=== PATIENT | female | born 1955 | race Caucasian/White ===

== ENCOUNTER 2018-04-14 19:12 | Observation (INO) ==
[2018-04-14] MEDS ORDERED: 0.9 % Sodium Chloride 500 ML IVC ONE (19:14)
--- NOTE | 2018-04-14 19:15 | Emergency Department Note ---
Disposition Clinical Impression: Chest pain Qualifiers: Chest pain type: unspecified Qualified Code(s): R07.9 - Chest pain, unspecified Disposition: Admitted As Inpatient Referrals: NONE,PCP [Primary Care Provider] - Forms: ED Satisfaction Letter Time of Disposition: 20:38 Chest Pain HPI - General Chief Complaint: ED Chest Pain Stated Complaint: CP Time Seen by Provider: 04/14/18 19:14 Source: patient, EMS Mode of arrival: EMS Limitations: no limitations Vital Signs Reviewed: Yes Nursing Notes Reviewed: Yes - History of Present Illness HPI Narrative: Patient presents to the ED if the chief complaint of chest pain. Patient does not have a history of coronary artery disease, but has had a normal stress test in the past. States that she has not felt well over the last week and about 3 or 4 hours ago started having centralized chest pressure and tightness radiating through to her back. EMS reports she was initially hypertensive and they gave her aspirin and nitroglycerin, which significantly improved her pain. She denies any headache or changes in vision. Some associated shortness of breath. States that she has a questionable history of CHF. Because she has been told that she has had in the past, but other times they have said she has not. Denies any pain or swelling in her legs. No abdominal pain, nausea, vomiting or diarrhea. - Related Data Home Medications Medication Instructions Recorded Confirmed ALPRAZolam [Xanax 1 MG Tablet] 1 mg PO TID PRN 11/05/15 01/11/16 BuPROPion SR (12 HR) [Wellbutrin 150 mg PO QAM 11/05/15 01/11/16 SR] Famotidine [Pepcid] 20 mg PO BID 11/05/15 01/11/16 Gabapentin [Neurontin] 300 mg PO TID 11/05/15 01/11/16 Oxycodone HCl [Oxaydo] 5 mg PO BID PRN 11/05/15 01/11/16 Sucralfate [Carafate] 2 gm PO QID 11/05/15 01/11/16 Carvedilol [Coreg] 25 mg PO BID 04/14/18 04/14/18 Esomeprazole Magnesium [Nexium] 40 mg PO DAILY 04/14/18 04/14/18 Ropinirole HCl [Requip] 5 mg PO QPM 04/14/18 04/14/18 hydroCHLOROthiazide 25 mg PO DAILY 04/14/18 04/14/18 [Hydrochlorothiazide] Allergies Allergy/AdvReac Type Severity Reaction Status Date / Time pregabalin [From Lyrica] Allergy See Verified 12/26/16 00:22 Comments amlodipine [From Norvasc] AdvReac Swelling Verified 12/26/16 01:09 of Lip/Tongue/Throat Review of Systems: As reviewed in the HPI. All other systems reviewed are negative or normal. Chest Pain PMH - Past Medical History Medical history: Reports: GERD, hypertension, other Psychiatric history: Reports: anxiety, depression - Social History Smoking Status: Former smoker Alcohol use: Reports: none Drug use: Reports: none Physical Exam CONSTITUTIONAL: [well appearing, alert and in no acute distress, slightly puffy] EYES: [EOMI, clear conjunctiva, PERRLA] HENT: [Normocephalic, atraumatic, moist mucus membranes, normal oropharynx] NECK: [normal inspection, full ROM, trachea midline, no obvious swelling] PULMONARY: [normal lung sounds bilaterally, normal chest rise and fall, no respiratory distress or stridor, no wheezes, no rales, no rhonchi CARDIOVASCULAR: [regular rate, regular rhythm, normal heart sounds, no murmurs, distal extremities are warm and well perfused] GASTROINSTESTINAL: [soft, non-tender, non-rigid, non-distended, no guarding, no rebound, normal bowel sounds] GENITOURINARY/RECTAL: [deferred] NEUROLOGIC: [Alert, oriented x3, normal speech, moves all extremities] EXTREMITIES: [Normal inspection, full ROM, no tenderness, no pedal edema, normal capillary refill] MUSCULOSKELETAL: [no gross deformities, atraumatic] SKIN: [No cyanosis, no diaphoresis, normal color, warm, no rash] PSYCHIATRIC: [normal mood and affect] Course Course Narrative: Patient presenting with chest pain. Concerning given her story. Also seems to be exertional. We will get labs and admit. Patient was pain-free with nitroglycerin her pain started to come back in another nitroglycerin relieved her pain. Vital Signs Temperature 98.3 F 04/14/18 19:15 Pulse Rate 78 04/14/18 19:15 Respiratory Rate 19 04/14/18 19:15 Blood Pressure 151/81 04/14/18 19:15 O2 Sat by Pulse Oximetry 98 04/14/18 19:15 Temperature 98.3 F 04/14/18 19:15 Pulse Rate 79 04/14/18 20:39 Respiratory Rate 18 04/14/18 20:39 Blood Pressure 136/73 04/14/18 20:39 O2 Sat by Pulse Oximetry 97 04/14/18 20:39 Oxygen Delivery Oxygen Delivery Room Air Chest Pain - Medical Records Medical records reviewed: Yes I reviewed the patient's medical records. - Lab Data Lab results reviewed: Yes I reviewed the patient's lab results. Result diagrams: 04/14/18 19:31 04/14/18 19:31 Lab Results 04/14/18 04/14/18 04/14/18 Range/Units 19:31 19:31 19:31 WBC 6.9 (4.3-11.1) K/mcL RBC 4.94 (3.82-4.97) M/mcL Hgb 12.7 (11.5-15.4) g/dL Hct 39.6 (35.3-44.9) % MCV 80.2 L (83.0-100.0) fL MCH 25.7 L (28.0-33.3) pg MCHC 32.1 (31.6-35.5) g/dL RDW 14.6 H (11.5-14.5) % Plt Count 161 (140-400) K/mcL MPV 11.9 (9.4-12.4) fL Immature Gran % 0.4 (0-4) % Seg Neutrophils % 51.8 % Lymphocytes % 33.2 % Monocytes % 11.5 % Eosinophils % 2.5 % Basophils % 0.6 % Neutrophils # 3.6 (1.6-8.9) K/mcL Lymphocytes # 2.3 (0.6-4.6) K/mcL Monocytes # 0.8 (0.0-1.3) K/mcL Eosinophils # 0.2 (0.0-0.6) K/mcL Basophils # 0.0 (0.0-0.2) K/mcL PT 10.9 (9.4-12.1) Seconds INR 1.0 APTT 32.8 (26.0-36.0) Seconds Sodium (136-145) mEq/L Potassium (3.5-5.1) mEq/L Chloride (98-107) mEq/L Carbon Dioxide (23-29) mEq/L BUN (8-23) mg/dL Creatinine (0.60-1.20) mg/dL Est GFR ( Amer) (> 60) Est GFR (Non-Af Amer) (> 60) BUN/Creatinine Ratio (6-26) Glucose (70-105) mg/dL Calculated Osmolality (280-300) Calcium (8.6-10.3) mg/dL Troponin I (< 0.04) ng/mL B-Natriuretic Peptide 25 (Less than 100) pg/mL TSH (0.340-5.600) mcIU/mL Urine Color (Yellow) Urine Clarity (Clear) Urine pH (5.0-8.0) pH Units Ur Specific [place] (1.010-1.025) Urine Protein (Neg-Trace) mg/dL Urine Glucose (UA) (Normal) mg/dL Urine Ketones (Negative) mg/dL Urine Blood (Negative) Urine Nitrite (Negative) Urine Bilirubin (Negative) Urine Urobilinogen (Normal) mg/dL Ur Leukocyte Esterase (Negative) Urine Microscopic RBC (0-3) per hpf Urine Microscopic WBC (0-3) per hpf Ur Squamous Epith Cells (None-Few) per lpf Urine Bacteria (None-Few) per hpf Hyaline Casts (None-Few) per lpf Ur Culture Indicated? (NO) 04/14/18 04/14/18 04/14/18 Range/Units 19:31 19:31 20:23 WBC (4.3-11.1) K/mcL RBC (3.82-4.97) M/mcL Hgb (11.5-15.4) g/dL Hct (35.3-44.9) % MCV (83.0-100.0) fL MCH (28.0-33.3) pg MCHC (31.6-35.5) g/dL RDW (11.5-14.5) % Plt Count (140-400) K/mcL MPV (9.4-12.4) fL Immature Gran % (0-4) % Seg Neutrophils % % Lymphocytes % % Monocytes % % Eosinophils % % Basophils % % Neutrophils # (1.6-8.9) K/mcL Lymphocytes # (0.6-4.6) K/mcL Monocytes # (0.0-1.3) K/mcL Eosinophils # (0.0-0.6) K/mcL Basophils # (0.0-0.2) K/mcL PT (9.4-12.1) Seconds INR APTT (26.0-36.0) Seconds Sodium 137 (136-145) mEq/L Potassium 4.0 (3.5-5.1) mEq/L Chloride 100 (98-107) mEq/L Carbon Dioxide 27 (23-29) mEq/L BUN 10 (8-23) mg/dL Creatinine 0.47 L (0.60-1.20) mg/dL Est GFR ( Amer) > 60 (> 60) Est GFR (Non-Af Amer) > 60 (> 60) BUN/Creatinine Ratio 21 (6-26) Glucose 133 H (70-105) mg/dL Calculated Osmolality 285 (280-300) Calcium 10.0 (8.6-10.3) mg/dL Troponin I < 0.03 (< 0.04) ng/mL B-Natriuretic Peptide (Less than 100) pg/mL TSH 1.140 (0.340-5.600) mcIU/mL Urine Color Yellow (Yellow) Urine Clarity Clear (Clear) Urine pH 7.5 (5.0-8.0) pH Units Ur Specific [place] 1.024 (1.010-1.025) Urine Protein 30 H (Neg-Trace) mg/dL Urine Glucose (UA) Normal (Normal) mg/dL Urine Ketones Negative (Negative) mg/dL Urine Blood Negative (Negative) Urine Nitrite Negative (Negative) Urine Bilirubin Negative (Negative) Urine Urobilinogen Normal (Normal) mg/dL Ur Leukocyte Esterase Small H (Negative) Urine Microscopic RBC 0-3 (0-3) per hpf Urine Microscopic WBC 0-3 (0-3) per hpf Ur Squamous Epith Cells Many H (None-Few) per lpf Urine Bacteria None Seen (None-Few) per hpf Hyaline Casts None Seen (None-Few) per lpf Ur Culture Indicated? NO. A (NO) - Radiology Data Radiology results reviewed: Yes I reviewed the patient's radiology results. - EKG Data EKG attestation: Yes I reviewed and interpreted this EKG. EKG results narrative: Sinus rhythm, rate 78, right bundle branch block, normal intervals, borderline left axis deviation, no acute ischemic changes, similar morphology to previous. Heart Score - Score History: Highly Suspicious EKG: Non Specific repolarisation Disturbance Age: 45-65 Risk Factors: Equal/Greater than 3 risk factor or history of atherosclerotic disease Troponin: Less than normal limit HEART Score Total: 6
[2018-04-14 19:50] LABS: Basophils % 0.6 %; Eosinophils # 0.2 K/mcL (0.0-0.6); Eosinophils % 2.5 %; Hematocrit 39.6 % (35.3-44.9); Hemoglobin 12.7 g/dL (11.5-15.4); Immature Granulocytes % 0.4 % (0-4); Lymphocytes # 2.3 K/mcL (0.6-4.6); Lymphocytes % 33.2 %; Mean Corpuscular HGB Conc 32.1 g/dL (31.6-35.5); Mean Corpuscular Hemoglobin 25.7 pg (28.0-33.3); Mean Corpuscular Volume 80.2 fL (83.0-100.0); Mean Platelet Volume 11.9 fL (9.4-12.4); Monocytes # 0.8 K/mcL (0.0-1.3); Monocytes % 11.5 %; Neutrophils # 3.6 K/mcL (1.6-8.9); Platelet Count 161 K/mcL (140-400); Red Blood Count 4.94 M/mcL (3.82-4.97); Red Cell Distribution Width 14.6 % (11.5-14.5); Segmented Neutrophils % 51.8 %
[2018-04-14 19:56] LABS: Prothrombin Time 10.9 Seconds (9.4-12.1)
[2018-04-14 19:58] LABS: Activated Partial Thrombo Time 32.8 Seconds (26.0-36.0)
[2018-04-14 20:09] LABS: BUN/Creatinine Ratio 21 (6-26); Blood Urea Nitrogen 10 mg/dL (8-23); Carbon Dioxide 27 mEq/L (23-29); Chloride 100 mEq/L (98-107); Glucose 133 mg/dL (70-105); Osmolality,Calculated 285 (280-300); Sodium 137 mEq/L (136-145); Troponin I < 0.03 ng/mL (< 0.04); eGFR For Non-African Americans > 60 (> 60)
[2018-04-14] MEDS: Nitroglycerin 0.4 MG TAB.SUBL SL PRN ×2 (20:30→20:35)
[2018-04-14 20:34] LABS: Bilirubin,Urine Negative (Negative); Blood,Urine Negative (Negative); Clarity,Urine Clear (Clear); Color,Urine Yellow (Yellow); Glucose,Urine (UA) Normal (Normal); Ketones,Urine Negative (Negative); Leukocyte Esterase,Urine Small (Negative); Nitrite,Urine Negative (Negative); PH,Urine 7.5 pH Units (5.0-8.0); Protein,Urine 30 mg/dL (Neg-Trace); Specific Gravity,Urine 1.024 (1.010-1.025); Urobilinogen,Urine Normal (Normal)
[2018-04-14 20:36] LABS: Bacteria,Urine None Seen per hpf (None-Few); Hyaline Casts,Urine None Seen per lpf (None-Few); RBC,Urine 0-3 per hpf (0-3); Squamous Epithelial Cell,Urine Many per lpf (None-Few); WBC,Urine 0-3 per hpf (0-3)
--- NOTE | 2018-04-14 20:43 | Emergency Department Note ---
Disposition Clinical Impression: Chest pain Qualifiers: Chest pain type: unspecified Qualified Code(s): R07.9 - Chest pain, unspecified Disposition: Admitted As Inpatient Condition: Fair Referrals: NONE,PCP [Primary Care Provider] - Forms: ED Satisfaction Letter General Adult HPI - General Chief complaint: ED Chest Pain Stated complaint: CP Time Seen by Provider: 04/14/18 19:14 Source: patient, EMS Mode of arrival: EMS Limitations: no limitations - History of Present Illness Pain Scale: 8 - Related Data Home Medications Medication Instructions Recorded Confirmed ALPRAZolam [Xanax 1 MG Tablet] 1 mg PO TID PRN 11/05/15 01/11/16 BuPROPion SR (12 HR) [Wellbutrin 150 mg PO QAM 11/05/15 01/11/16 SR] Famotidine [Pepcid] 20 mg PO BID 11/05/15 01/11/16 Gabapentin [Neurontin] 300 mg PO TID 11/05/15 01/11/16 Oxycodone HCl [Oxaydo] 5 mg PO BID PRN 11/05/15 01/11/16 Sucralfate [Carafate] 2 gm PO QID 11/05/15 01/11/16 Carvedilol [Coreg] 25 mg PO BID 04/14/18 04/14/18 Esomeprazole Magnesium [Nexium] 40 mg PO DAILY 04/14/18 04/14/18 Ropinirole HCl [Requip] 5 mg PO QPM 04/14/18 04/14/18 hydroCHLOROthiazide 25 mg PO DAILY 04/14/18 04/14/18 [Hydrochlorothiazide] Allergies Allergy/AdvReac Type Severity Reaction Status Date / Time pregabalin [From Lyrica] Allergy See Verified 12/26/16 00:22 Comments amlodipine [From Norvasc] AdvReac Swelling Verified 12/26/16 01:09 of Lip/Tongue/Throat Past Medical History - Past Medical History Medical history: Reports: GERD, hypertension, other Psychiatric history: Reports: anxiety, depression - Social History Smoking Status: Former smoker Smokeless Tobacco Status: No Alcohol use: Reports: none Drug use: Reports: none Physical Exam - General Limitations: no limitations General appearance: alert, in no apparent distress Course Vital Signs Temperature 98.3 F 04/14/18 19:15 Pulse Rate 78 04/14/18 19:15 Respiratory Rate 19 04/14/18 19:15 Blood Pressure 151/81 04/14/18 19:15 O2 Sat by Pulse Oximetry 98 04/14/18 19:15 Temperature 98.3 F 04/14/18 19:15 Pulse Rate 79 04/14/18 20:39 Respiratory Rate 18 04/14/18 20:39 Blood Pressure 136/73 04/14/18 20:39 O2 Sat by Pulse Oximetry 97 04/14/18 20:39 Oxygen Delivery Oxygen Delivery Room Air Medical Decision Making - Lab Data Result diagrams: 04/14/18 19:31 04/14/18 19:31 Lab Results 04/14/18 04/14/18 04/14/18 Range/Units 19:31 19:31 19:31 WBC 6.9 (4.3-11.1) K/mcL RBC 4.94 (3.82-4.97) M/mcL Hgb 12.7 (11.5-15.4) g/dL Hct 39.6 (35.3-44.9) % MCV 80.2 L (83.0-100.0) fL MCH 25.7 L (28.0-33.3) pg MCHC 32.1 (31.6-35.5) g/dL RDW 14.6 H (11.5-14.5) % Plt Count 161 (140-400) K/mcL MPV 11.9 (9.4-12.4) fL Immature Gran % 0.4 (0-4) % Seg Neutrophils % 51.8 % Lymphocytes % 33.2 % Monocytes % 11.5 % Eosinophils % 2.5 % Basophils % 0.6 % Neutrophils # 3.6 (1.6-8.9) K/mcL Lymphocytes # 2.3 (0.6-4.6) K/mcL Monocytes # 0.8 (0.0-1.3) K/mcL Eosinophils # 0.2 (0.0-0.6) K/mcL Basophils # 0.0 (0.0-0.2) K/mcL PT 10.9 (9.4-12.1) Seconds INR 1.0 APTT 32.8 (26.0-36.0) Seconds Sodium (136-145) mEq/L Potassium (3.5-5.1) mEq/L Chloride (98-107) mEq/L Carbon Dioxide (23-29) mEq/L BUN (8-23) mg/dL Creatinine (0.60-1.20) mg/dL Est GFR ( Amer) (> 60) Est GFR (Non-Af Amer) (> 60) BUN/Creatinine Ratio (6-26) Glucose (70-105) mg/dL Calculated Osmolality (280-300) Calcium (8.6-10.3) mg/dL Troponin I (< 0.04) ng/mL B-Natriuretic Peptide 25 (Less than 100) pg/mL TSH (0.340-5.600) mcIU/mL Urine Color (Yellow) Urine Clarity (Clear) Urine pH (5.0-8.0) pH Units Ur Specific [place] (1.010-1.025) Urine Protein (Neg-Trace) mg/dL Urine Glucose (UA) (Normal) mg/dL Urine Ketones (Negative) mg/dL Urine Blood (Negative) Urine Nitrite (Negative) Urine Bilirubin (Negative) Urine Urobilinogen (Normal) mg/dL Ur Leukocyte Esterase (Negative) Urine Microscopic RBC (0-3) per hpf Urine Microscopic WBC (0-3) per hpf Ur Squamous Epith Cells (None-Few) per lpf Urine Bacteria (None-Few) per hpf Hyaline Casts (None-Few) per lpf Ur Culture Indicated? (NO) 04/14/18 04/14/18 04/14/18 Range/Units 19:31 19:31 20:23 WBC (4.3-11.1) K/mcL RBC (3.82-4.97) M/mcL Hgb (11.5-15.4) g/dL Hct (35.3-44.9) % MCV (83.0-100.0) fL MCH (28.0-33.3) pg MCHC (31.6-35.5) g/dL RDW (11.5-14.5) % Plt Count (140-400) K/mcL MPV (9.4-12.4) fL Immature Gran % (0-4) % Seg Neutrophils % % Lymphocytes % % Monocytes % % Eosinophils % % Basophils % % Neutrophils # (1.6-8.9) K/mcL Lymphocytes # (0.6-4.6) K/mcL Monocytes # (0.0-1.3) K/mcL Eosinophils # (0.0-0.6) K/mcL Basophils # (0.0-0.2) K/mcL PT (9.4-12.1) Seconds INR APTT (26.0-36.0) Seconds Sodium 137 (136-145) mEq/L Potassium 4.0 (3.5-5.1) mEq/L Chloride 100 (98-107) mEq/L Carbon Dioxide 27 (23-29) mEq/L BUN 10 (8-23) mg/dL Creatinine 0.47 L (0.60-1.20) mg/dL Est GFR ( Amer) > 60 (> 60) Est GFR (Non-Af Amer) > 60 (> 60) BUN/Creatinine Ratio 21 (6-26) Glucose 133 H (70-105) mg/dL Calculated Osmolality 285 (280-300) Calcium 10.0 (8.6-10.3) mg/dL Troponin I < 0.03 (< 0.04) ng/mL B-Natriuretic Peptide (Less than 100) pg/mL TSH 1.140 (0.340-5.600) mcIU/mL Urine Color Yellow (Yellow) Urine Clarity Clear (Clear) Urine pH 7.5 (5.0-8.0) pH Units Ur Specific [place] 1.024 (1.010-1.025) Urine Protein 30 H (Neg-Trace) mg/dL Urine Glucose (UA) Normal (Normal) mg/dL Urine Ketones Negative (Negative) mg/dL Urine Blood Negative (Negative) Urine Nitrite Negative (Negative) Urine Bilirubin Negative (Negative) Urine Urobilinogen Normal (Normal) mg/dL Ur Leukocyte Esterase Small H (Negative) Urine Microscopic RBC 0-3 (0-3) per hpf Urine Microscopic WBC 0-3 (0-3) per hpf Ur Squamous Epith Cells Many H (None-Few) per lpf Urine Bacteria None Seen (None-Few) per hpf Hyaline Casts None Seen (None-Few) per lpf Ur Culture Indicated? NO. A (NO) Attestation Statement - Attestation Attestation: I examined this patient and my medical decision-making was reviewed with the Resident Physician. I agree with the documented findings, disposition and treatment plan as described except to the extent set forth below. Patient to the ED with chest pain. Describes it as heaviness going into her back. No cardiac history. On exam she is in no acute distress. Denies pain on my evaluation. Heart regular lungs clear. Plan. Patient with a concerning story. Recently diagnosed with hypertension. Likely observation. . No acute EKG changes. Troponin negative. Her discomfort is almost completely resolved with nitroglycerin. We will start a nitro drip. Admit to medicine.
[2018-04-15] MEDS ORDERED: Naloxone 0.4 MG/ML INJ IVP PRN (03:33)
[2018-04-15] MEDS ORDERED: *HR* OxyCODONE Immed Rel 5 MG TABLET PO PRN (03:59)
[2018-04-15] MEDS ORDERED: Isovue-370 500 ML INFUS..BTL IV ONE (04:09)
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
[2018-04-15 04:30] LABS: Hematocrit 37.7 % (35.3-44.9); Hemoglobin 12.2 g/dL (11.5-15.4); Mean Corpuscular HGB Conc 32.4 g/dL (31.6-35.5); Mean Corpuscular Hemoglobin 25.4 pg (28.0-33.3); Mean Corpuscular Volume 78.5 fL (83.0-100.0); Mean Platelet Volume 10.7 fL (9.4-12.4); Platelet Count 140 K/mcL (140-400); Red Cell Distribution Width 14.7 % (11.5-14.5)
[2018-04-15 04:57] LABS: Alanine Aminotransferase 19 Units/L (7-52); Albumin 4.1 g/dL (3.5-5.7); Albumin/Globulin Ratio 1.5 (1.1-2.2); Alkaline Phosphatase 53 Units/L (34-104); Aspartate Amino Transferase 14 Units/L (13-39); BUN/Creatinine Ratio 21 (6-26); Bilirubin,Total 0.4 mg/dL (0.3-1.0); Blood Urea Nitrogen 9 mg/dL (8-23); Calcium 9.5 mg/dL (8.6-10.3); Carbon Dioxide 27 mEq/L (23-29); Chloride 100 mEq/L (98-107); Globulin 2.7 g/dL (2.4-3.5); Glucose 109 mg/dL (70-105); Osmolality,Calculated 281 (280-300); Potassium 3.7 mEq/L (3.5-5.1); Sodium 136 mEq/L (136-145); Total Protein 6.8 g/dL (6.4-8.9); eGFR For Non-African Americans > 60 (> 60)
[2018-04-15] MEDS ORDERED: Famotidine 20 MG TABLET PO SCH (07:30)
[2018-04-15] MEDS ORDERED: ALPRAZolam 1 MG TABLET PO SCH (09:00)
[2018-04-15] MEDS ORDERED: Aspirin 325 MG TABLET PO SCH (09:00)
[2018-04-15] MEDS ORDERED: BuPROPion SR (12 HR) 150 MG TABLET PO SCH (09:00)
[2018-04-15] MEDS ORDERED: hydroCHLOROthiazide 25 MG TABLET PO SCH (09:00)
[2018-04-15 11:41] VITALS: BP 141/91
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
[2018-04-15] MEDS: Sucralfate 1 GM TABLET PO SCH ×2 (12:03→12:26)
[2018-04-15] MEDS: Gabapentin 300 MG CAPSULE PO SCH ×2 (12:04→12:26)
--- NOTE | 2018-04-15 13:04 | Discharge Summary ---
- NOTES TO OUTPATIENT PROVIDER Notes to Outpatient Provider: Chest pain, likely anxiety and stress-related; nuclear stress test negative; uncontrolled HTN, to monitor as outpatient; consider ACEI/ARB; Orders not resulted at time of discharge: Pending orders 04/15/18 04:09 CT angio chest [CT] Stat CTA Abdomen [CT angio abdomen] [CT] Stat 04/15/18 04:19 NM asia perf SPECT multi [NM] Routine 04/15/18 07:19 EV echocardiogram Routine 04/15/18 09:45 Troponin I Q6H 04/15/18 15:45 Troponin I Q6H Date of Encounter: 04/15/18 Time of Encounter: 13:00 - Discharge Diagnosis (1) COPD (chronic obstructive pulmonary disease) Priority: Secondary Status: Chronic Qualifiers: COPD type: emphysema Emphysema type: unspecified Qualified Code(s): J43.9 - Emphysema, unspecified (2) Chest pain Priority: Primary Status: Acute Qualifiers: Chest pain type: unspecified Qualified Code(s): R07.9 - Chest pain, unspecified (3) Anxiety and depression Priority: Secondary Status: Chronic (4) Sleep apnea Priority: Secondary Status: Chronic Qualifiers: Sleep apnea type: obstructive Qualified Code(s): G47.33 - Obstructive sleep apnea (adult) (pediatric) (5) Essential hypertension Priority: Secondary Status: Chronic Hospital course: Ms. Landon Birmingham is a 62 year old female with the above medical problems, who was admitted with chest pain and mild exertional dyspnea. Her chest pain started after having an argument with her daughter, likely stress and anxiety related. She was also noted to have uncontrolled hypertension at admission, reports compliance to medications. Blood pressure was gradually better controlled with use of when necessary IV hydralazine. Telemetry and serial troponins remained unremarkable. Patient underwent nuclear stress test, which is negative for acute ischemia or infarct. Cardiology signed off with outpatient follow-up recommendations. She will continue to use her home beta ivan and diuretic. She may be started on AMY inhibitor/ARB as outpatient while monitoring for renal function and intolerance. Not being started on calcium channel ivan due to pedal edema. Patient continues to be somewhat stressed out and anxious, requesting to be discharged. She is otherwise medically stable for outpatient follow-up. Discharge discussed with: patient, nurse - Time Spent with Patient Total time spent providing and/or coordinating discharge services: Greater than 30 minutes (40 min) - Discharge Medications Home Medications: ALPRAZolam [Xanax 1 MG Tablet] 1 mg PO DAILY 11/05/15 [History] BuPROPion SR (12 HR) [Wellbutrin SR] 150 mg PO BID 11/05/15 [History] Famotidine [Pepcid] 20 mg PO BID 11/05/15 [History] Gabapentin [Neurontin] 300 mg PO QID 11/05/15 [History] Oxycodone HCl [Oxaydo] 5 mg PO BID PRN 11/05/15 [History] Sucralfate [Carafate] 1 gm PO QID 11/05/15 [History] Carvedilol [Coreg] 25 mg PO BID 04/14/18 [History] Esomeprazole Magnesium [Nexium] 40 mg PO DAILY 04/14/18 [History] Ropinirole HCl [Requip] 5 mg PO QPM 04/14/18 [History] hydroCHLOROthiazide [Hydrochlorothiazide] 25 mg PO DAILY 04/14/18 [History] Allergies/Adverse Reactions: 3 Allergy/AdvReac Type Severity Reaction Status Date / Time pregabalin [From Lyrica] Allergy See Verified 12/26/16 00:22 Comments amlodipine [From Norvasc] AdvReac Swelling Verified 12/26/16 01:09 of Lip/Tongue/Throat Date of admission: 04/14/18 22:59 Primary care physician: PCP NONE Consults: 04/15/18 04:19 Consult to Cardiology [CONS] Routine Comment: Consulting Provider: [facility] Reason for Consult: Chest Pain assess for CAD Call Completed: No Discharging clinician: Angelika Reed Anticipated date of discharge: 04/15/18 - Constitutional Vitals: Temp Pulse Resp BP Pulse Ox 98.4 F 91 18 141/91 95 04/15/18 11:38 04/15/18 11:38 04/15/18 11:38 04/15/18 11:38 04/15/18 11:38 General appearance: Present: A&O X 3, answers questions appropriately Exam: . - Cardiovascular Cardiovascular exam: Present: RRR, +S1, +S2. Absent: diastolic murmur, gallop, rubs, systolic murmur - Patient Status Disposition: Home, Self-Care Condition: Good Functional capacity at discharge: independent ambulation Overall status at discharge: patient is progressing back to baseline - Discharge Instructions Follow Up With: NONE,PCP [Primary Care Provider] - Additional Instructions: F/up with PCP in 1-2 weeks - Diet and Activity Activity: resume usual activities as tolerated Diet: low fat, low cholesterol, low salt diet
[2018-04-15] MEDS ORDERED: *HR* Heparin 5,000 UNIT/ML VIAL SQ SCH (14:00)
[2018-04-15] MEDS ORDERED: NON-FORMULARY MEDICATION 1 EACH EACH (Ropinirole Hcl [Requip] 5 MG) PO SCH (18:00)
[2018-04-15] MEDS ORDERED: rOPINIRole 3 MG, rOPINIRole 2 MG PO SCH (18:00)
--- NOTE | 2018-04-17 17:38 | Electrocardiograph Report ---
[address] [place], [place] [address] Test Date: 2018-04-14 Pat Name: Shelia Birmingham Department: [id number] Room: 2A37 Gender: F [employer]: : 1955 Requested By: [id number] Order Number: [id number] Reading MD: Vega Wynn Measurements Intervals [place] Rate: 78 P: 68 [place]: 169 QRS: 55 QRSD: 144 T: 44 QT: 404 QTc: 461 Interpretive Statements Sinus rhythm Right bundle branch block Electronically Signed On 04-17-2018 17:36:56 EDT by Vega Wynn
== END 2018-04-15 13:49 | disposition home or self-care (01) ==
LOC: EMEROOARM 19:12 → 2ANU 19:12 → SUATTDRO 22:59 → 2ANU 23:58
PROVIDERS: ADMIT Internal Medicine; ATTEND Internal Medicine

== ENCOUNTER 2020-12-30 17:17 | Inpatient (IN) ==
[2020-12-30] MEDS ORDERED: Isovue-370 500 ML BOTTLE IVP ONE (17:47)
[2020-12-30 18:10] LABS: Basophils % 0.5 %; Eosinophils % 0.5 %; Hematocrit 40.5 % (35.3-44.9); Hemoglobin 12.9 g/dL (11.5-15.4); Immature Granulocytes % 0.8 % (0-4); Lymphocytes # 0.8 K/mcL (0.6-4.6); Lymphocytes % 21.4 %; Mean Corpuscular HGB Conc 31.9 g/dL (31.6-35.5); Mean Corpuscular Hemoglobin 25.4 pg (28.0-33.3); Mean Corpuscular Volume 79.9 fL (83.0-100.0); Mean Platelet Volume 11.7 fL (9.4-12.4); Monocytes # 0.3 K/mcL (0.0-1.3); Monocytes % 9.1 %; Neutrophils # 2.5 K/mcL (1.6-8.9); Platelet Count 104 K/mcL (140-400); Red Blood Count 5.07 M/mcL (3.82-4.97); Red Cell Distribution Width 14.7 % (11.5-14.5); Segmented Neutrophils % 67.7 %; White Blood Count 3.6 K/mcL (4.3-11.1)
[2020-12-30 18:25] LABS: INR 1.1; Prothrombin Time 12.4 Seconds (9.4-12.1)
[2020-12-30 18:27] LABS: Activated Partial Thrombo Time 31.2 Seconds (26.0-36.0)
[2020-12-30 18:38] LABS: Alanine Aminotransferase 43 Units/L (7-52); Albumin 3.9 g/dL (3.5-5.7); Albumin/Globulin Ratio 1.1 (1.1-2.2); Alkaline Phosphatase 83 Units/L (34-104); Aspartate Amino Transferase 45 Units/L (13-39); BUN/Creatinine Ratio 20 (6-26); Bilirubin,Direct 0.2 mg/dL (0.0-0.2); Bilirubin,Indirect 0.4 mg/dL (0.0-1.0); Bilirubin,Total 0.6 mg/dL (0.3-1.0); Blood Urea Nitrogen 11 mg/dL (8-23); C-Reactive Protein 183 mg/L (Less than 10); Calcium 9.3 mg/dL (8.6-10.3); Carbon Dioxide 27 mEq/L (23-29); Chloride 94 mEq/L (98-107); Globulin 3.5 g/dL (2.4-3.5); Glucose 199 mg/dL (70-105); Lactate Dehydrogenase 195 Units/L (140-271); Magnesium 1.7 mg/dL (1.6-2.6); Osmolality,Calculated 273 (280-300); Phosphorous 1.8 mg/dL (2.7-4.5); Potassium 3.7 mEq/L (3.5-5.1); Sodium 129 mEq/L (136-145); Total Protein 7.4 g/dL (6.4-8.9); Troponin I < 0.03 ng/mL (< 0.04); eGFR For African Americans > 60 (> 60); eGFR For Non-African Americans > 60 (> 60)
[2020-12-30 18:50] LABS: Ferritin 413 ng/mL (10-120)
[2020-12-30] MEDS ORDERED: cefTRIAXone 1,000 MG in Water for inj. (sterile) 10 ML IVP ONE (19:54)
[2020-12-30] MEDS ORDERED: Azithromycin 500 MG in 0.9 % Sodium Chloride 250 ML IVPB ONE (19:54)
[2020-12-30 22:35] LABS: Bilirubin,Urine Negative (Negative); Blood,Urine Small (Negative); Clarity,Urine Clear (Clear); Color,Urine Yellow (Yellow); Glucose,Urine (UA) 70 mg/dL (Normal); Ketones,Urine Negative (Negative); Leukocyte Esterase,Urine Negative (Negative); Mucus,Urine Few per lpf (None-Few); Nitrite,Urine Negative (Negative); PH,Urine 6.5 pH Units (5.0-8.0); Protein,Urine >=600 mg/dL (Neg-Trace); Specific Gravity,Urine > 1.030 (1.010-1.025); Squamous Epithelial Cell,Urine Few per hpf (None-Few)
[2020-12-30] MEDS ORDERED: Naloxone 0.4 MG/ML INJ IVP PRN (23:06)
[2020-12-30] MEDS ORDERED: Melatonin 3 MG TABLET PO PRN (23:06)
[2020-12-30] MEDS ORDERED: Ondansetron 4 MG/2 ML VIAL IVP PRN (23:06)
[2020-12-30] MEDS: Acetaminophen 325 MG TABLET PO PRN (23:38)
[2020-12-31] MEDS ORDERED: Potassium Phosphate 44 MEQ in 0.9 % Sodium Chloride 250 ML IVPB ONE (06:26)
[2020-12-31] MEDS: cefTRIAXone 1,000 MG in Water for inj. (sterile) 10 ML IVP SCH (08:49)
[2020-12-31 08:55] LABS: INR 1.1; Prothrombin Time 13.1 Seconds (9.4-12.1)
[2020-12-31 08:57] LABS: Hematocrit 40.8 % (35.3-44.9); Hemoglobin 13.2 g/dL (11.5-15.4); Immature Granulocytes % 0.6 % (0-4); Lymphocytes # 0.6 K/mcL (0.6-4.6); Lymphocytes % 18.2 %; Mean Corpuscular HGB Conc 32.4 g/dL (31.6-35.5); Mean Corpuscular Hemoglobin 25.7 pg (28.0-33.3); Mean Corpuscular Volume 79.5 fL (83.0-100.0); Mean Platelet Volume 12.2 fL (9.4-12.4); Monocytes # 0.3 K/mcL (0.0-1.3); Monocytes % 7.1 %; Neutrophils # 2.6 K/mcL (1.6-8.9); Platelet Count 108 K/mcL (140-400); Red Blood Count 5.13 M/mcL (3.82-4.97); Red Cell Distribution Width 14.7 % (11.5-14.5); Segmented Neutrophils % 74.1 %; White Blood Count 3.5 K/mcL (4.3-11.1)
[2020-12-31] MEDS ORDERED: *HR* Succinylcholine 200 MG/10 ML VIAL IVP ONE (09:04)
[2020-12-31] MEDS ORDERED: Ondansetron 4 MG/2 ML VIAL ONE (09:04)
[2020-12-31] MEDS ORDERED: *HR* Midazolam HCl 2 MG/2 ML VIAL ONE (09:04)
[2020-12-31] MEDS ORDERED: Lidocaine -MPF 2% 2 ML VIAL ONE (09:04)
[2020-12-31] MEDS ORDERED: *HR* FentaNYL (PF) 100 MCG/2 ML VIAL ONE (09:04)
[2020-12-31] MEDS ORDERED: *HR* Propofol 200 MG/20 ML VIAL IVP ONE (09:04)
[2020-12-31] MEDS ORDERED: *HR* Metoprolol 5 MG/5 ML VIAL IVP ONE ×2 (09:08→10:01)
[2020-12-31] MEDS ORDERED: Lidocaine HCL 4 ML Topical Solution (Laryng-O-Jet Kit Sterile Pak) TP ONE (09:25)
[2020-12-31 10:25] LABS: Alanine Aminotransferase 41 Units/L (7-52); Albumin 3.8 g/dL (3.5-5.7); Albumin/Globulin Ratio 1.2 (1.1-2.2); Alkaline Phosphatase 82 Units/L (34-104); Aspartate Amino Transferase 36 Units/L (13-39); BUN/Creatinine Ratio 29 (6-26); Bilirubin,Total 0.5 mg/dL (0.3-1.0); Blood Urea Nitrogen 11 mg/dL (8-23); Calcium 9.2 mg/dL (8.6-10.3); Carbon Dioxide 23 mEq/L (23-29); Chloride 94 mEq/L (98-107); Globulin 3.3 g/dL (2.4-3.5); Glucose 246 mg/dL (70-105); Osmolality,Calculated 274 (280-300); Phosphorous 3.2 mg/dL (2.7-4.5); Potassium 4.2 mEq/L (3.5-5.1); Sodium 128 mEq/L (136-145); Total Protein 7.1 g/dL (6.4-8.9); eGFR For African Americans > 60 (> 60); eGFR For Non-African Americans > 60 (> 60)
[2020-12-31 11:22] LABS: Appearance of Body Fluid Cloudy (Clear); Volume of Body Fluid 20 mL
[2020-12-31] MEDS ORDERED: ALPRAZolam 0.5 MG TABLET PO PRN (13:54)
[2020-12-31] MEDS ORDERED: D5% in Water 1,000 ML IVC PRN (13:55)
[2020-12-31] MEDS ORDERED: *HR* Dextrose 50 % in Water (Vial) 50 ML VIAL IVP PRN (13:55)
[2020-12-31] MEDS ORDERED: Dextrose Gel 15 GM/37.5 ML TUBE PO PRN ×2 (13:55)
[2020-12-31] MEDS: Gabapentin 300 MG CAPSULE PO SCH ×2 (15:14→21:27)
[2020-12-31] MEDS: Sucralfate 1 GM TABLET PO SCH ×2 (15:14→21:27)
[2020-12-31] MEDS: carvediloL 25 MG TABLET PO SCH (15:14)
[2020-12-31] MEDS: Insulin LISPRO 300 UNITS/3 ML VIAL SUBQ SCH (17:39)
[2020-12-31] MEDS: Acetaminophen 325 MG TABLET PO PRN (17:44)
[2020-12-31] MEDS ORDERED: Insulin LISPRO 300 UNITS/3 ML VIAL SUBQ SCH (21:00)
[2020-12-31] MEDS: rOPINIRole 1 MG TABLET PO SCH ×2 (21:27→22:00)
[2020-12-31] MEDS ORDERED: Azithromycin 500 MG in D5% in Water 250 ML IVPB SCH (23:45)
[2021-01-01 03:56] LABS: Hematocrit 36.9 % (35.3-44.9); Mean Corpuscular HGB Conc 31.4 g/dL (31.6-35.5); Mean Corpuscular Hemoglobin 25.4 pg (28.0-33.3); Mean Corpuscular Volume 80.9 fL (83.0-100.0); Platelet Count 122 K/mcL (140-400); Red Blood Count 4.56 M/mcL (3.82-4.97); Red Cell Distribution Width 14.8 % (11.5-14.5); White Blood Count 4.9 K/mcL (4.3-11.1)
[2021-01-01 03:57] LABS: Alanine Aminotransferase 46 Units/L (7-52); Albumin 3.4 g/dL (3.5-5.7); Albumin/Globulin Ratio 1.1 (1.1-2.2); Alkaline Phosphatase 69 Units/L (34-104); Aspartate Amino Transferase 39 Units/L (13-39); BUN/Creatinine Ratio 44 (6-26); Bilirubin,Total 0.3 mg/dL (0.3-1.0); Blood Urea Nitrogen 26 mg/dL (8-23); Calcium 8.6 mg/dL (8.6-10.3); Carbon Dioxide 26 mEq/L (23-29); Chloride 95 mEq/L (98-107); Globulin 3.1 g/dL (2.4-3.5); Glucose 228 mg/dL (70-105); Osmolality,Calculated 278 (280-300); Potassium 4.2 mEq/L (3.5-5.1); Sodium 128 mEq/L (136-145); Total Protein 6.5 g/dL (6.4-8.9); eGFR For African Americans > 60 (> 60); eGFR For Non-African Americans > 60 (> 60)
[2021-01-01 03:59] LABS: Hemoglobin 11.6 g/dL (11.5-15.4)
[2021-01-01 05:03] LABS: Estimated Average Glucose 203 mg/dl; Hemoglobin A1C 8.7 %
[2021-01-01] MEDS: Acetaminophen 325 MG TABLET PO PRN (05:48)
[2021-01-01 07:31] VITALS: BP 123/83
[2021-01-01] MEDS: Insulin LISPRO 300 UNITS/3 ML VIAL SUBQ SCH ×2 (07:38→12:11)
[2021-01-01] MEDS: cefTRIAXone 1,000 MG in Water for inj. (sterile) 10 ML IVP SCH (07:45)
[2021-01-01] MEDS: Sucralfate 1 GM TABLET PO SCH (07:47)
[2021-01-01] MEDS: rOPINIRole 1 MG TABLET PO SCH (07:47)
[2021-01-01] MEDS: carvediloL 25 MG TABLET PO SCH (07:47)
[2021-01-01] MEDS: Gabapentin 300 MG CAPSULE PO SCH (07:47)
== END 2021-01-01 13:07 | disposition home or self-care (01) | DRG 871 ==
LOC: 3BNU 17:17 → EMEROOARM 17:17 → SUATTDRO 21:08 → 3BNU 21:31 → SUATTDRO 12-31 13:09
PROVIDERS: ADMIT Internal Medicine; ATTEND Internal Medicine

== ENCOUNTER 2021-01-01 18:45 | Inpatient (IN) ==
[2021-01-01] MEDS ORDERED: 0.9 % Sodium Chloride 2,000 ML ONE (19:04)
[2021-01-01] MEDS ORDERED: Acetaminophen 325 MG TABLET PO ONE (19:10)
[2021-01-01] MEDS ORDERED: Isovue-370 500 ML BOTTLE IVP ONE (19:11)
[2021-01-01] MEDS ORDERED: 0.9 % Sodium Chloride 1,000 ML IVC ONE (19:12)
[2021-01-01 19:26] LABS: Basophils % 0.2 %; Hematocrit 38.1 % (35.3-44.9); Hemoglobin 11.7 g/dL (11.5-15.4); Immature Granulocytes % 0.4 % (0-4); Lymphocytes # 0.4 K/mcL (0.6-4.6); Mean Corpuscular HGB Conc 30.7 g/dL (31.6-35.5); Mean Corpuscular Hemoglobin 25.3 pg (28.0-33.3); Mean Corpuscular Volume 82.3 fL (83.0-100.0); Mean Platelet Volume 12.6 fL (9.4-12.4); Monocytes # 0.3 K/mcL (0.0-1.3); Monocytes % 5.4 %; Neutrophils # 4.5 K/mcL (1.6-8.9); Platelet Count 153 K/mcL (140-400); Red Blood Count 4.63 M/mcL (3.82-4.97); Red Cell Distribution Width 14.9 % (11.5-14.5); White Blood Count 5.1 K/mcL (4.3-11.1)
[2021-01-01] MEDS: DilTIAZem 50 MG/50 ML IV.SOLN IVC SCH (19:30)
[2021-01-01 19:37] LABS: Activated Partial Thrombo Time 26.5 Seconds (26.0-36.0)
[2021-01-01 19:48] LABS: Alanine Aminotransferase 97 Units/L (7-52); Albumin 3.7 g/dL (3.5-5.7); Albumin/Globulin Ratio 1.1 (1.1-2.2); Alkaline Phosphatase 106 Units/L (34-104); Aspartate Amino Transferase 98 Units/L (13-39); BUN/Creatinine Ratio 30 (6-26); Bilirubin,Direct 0.1 mg/dL (0.0-0.2); Bilirubin,Indirect 0.3 mg/dL (0.0-1.0); Bilirubin,Total 0.4 mg/dL (0.3-1.0); Blood Urea Nitrogen 22 mg/dL (8-23); C-Reactive Protein 98 mg/L (Less than 10); Carbon Dioxide 23 mEq/L (23-29); Chloride 92 mEq/L (98-107); Globulin 3.3 g/dL (2.4-3.5); Glucose 479 mg/dL (70-105); Lactate Dehydrogenase 279 Units/L (140-271); Magnesium 1.9 mg/dL (1.6-2.6); Osmolality,Calculated 282 (280-300); Phosphorous 2.3 mg/dL (2.7-4.5); Potassium 4.6 mEq/L (3.5-5.1); Sodium 124 mEq/L (136-145); Troponin I < 0.03 ng/mL (< 0.04); eGFR For African Americans > 60 (> 60); eGFR For Non-African Americans > 60 (> 60)
[2021-01-01 20:05] LABS: Ferritin 654 ng/mL (10-120)
[2021-01-01] MEDS ORDERED: *HR* Enoxaparin 100 MG/ML SYRINGE SQ ONE ×2 (23:00→23:15)
[2021-01-02] MEDS ORDERED: Acetaminophen 325 MG TABLET PO PRN (00:39)
[2021-01-02] MEDS ORDERED: Ondansetron 4 MG/2 ML VIAL IVP PRN (00:39)
[2021-01-02] MEDS ORDERED: Naloxone 0.4 MG/ML INJ IVP PRN (00:39)
[2021-01-02] MEDS ORDERED: Melatonin 3 MG TABLET PO PRN (00:39)
[2021-01-02] MEDS ORDERED: Dextrose Gel 15 GM/37.5 ML TUBE PO PRN ×2 (00:43)
[2021-01-02] MEDS ORDERED: D5% in Water 1,000 ML IVC PRN (00:43)
[2021-01-02] MEDS ORDERED: *HR* Dextrose 50 % in Water (Vial) 50 ML VIAL IVP PRN (00:43)
[2021-01-02] MEDS ORDERED: Insulin Human Regular 5 UNIT in 0.9 % Sodium Chloride 10 ML IV ONE (00:45)
[2021-01-02] MEDS: DilTIAZem 50 MG/50 ML IV.SOLN IVC SCH ×6 (01:51→23:22)
[2021-01-02] MEDS: Insulin LISPRO 300 UNITS/3 ML VIAL SUBQ SCH ×3 (05:44→16:49)
[2021-01-02] MEDS ORDERED: ALPRAZolam 0.5 MG TABLET PO PRN (06:16)
[2021-01-02] MEDS: Nicotine 21 MG PATCH.TD24 TD SCH (06:27)
[2021-01-02] MEDS ORDERED: Perflutren Lipid Microsphere 1.3 ML in 0.9 % Sodium Chloride 8.7 ML IVP PRN (07:04)
[2021-01-02] MEDS: cefTRIAXone 2,000 MG in Water for inj. (sterile) 20 ML IVP SCH (08:47)
[2021-01-02] MEDS: Doxycycline 100 MG CAPSULE PO SCH ×2 (08:48→22:09)
[2021-01-02] MEDS: Insulin DETEMIR 100 UNIT/ML X5UNITS SUBQ SCH ×2 (08:48→11:40)
[2021-01-02] MEDS ORDERED: levoFLOXacin 750 MG TABLET PO SCH (09:00)
[2021-01-02] MEDS ORDERED: Metoprolol XL (24 HR) Succ 50 MG TAB.ER.24H PO SCH (09:00)
[2021-01-02] MEDS ORDERED: *HR* OxyCODONE Immed Rel 5 MG TABLET PO PRN (09:02)
[2021-01-02 09:07] LABS: Basophils % 0.3 %; Hematocrit 40.7 % (35.3-44.9); Immature Granulocytes % 0.8 % (0-4); Lymphocytes # 0.8 K/mcL (0.6-4.6); Lymphocytes % 11.6 %; Mean Corpuscular HGB Conc 31.9 g/dL (31.6-35.5); Mean Corpuscular Hemoglobin 25.8 pg (28.0-33.3); Mean Corpuscular Volume 80.9 fL (83.0-100.0); Mean Platelet Volume 11.9 fL (9.4-12.4); Monocytes # 0.5 K/mcL (0.0-1.3); Monocytes % 7.9 %; Neutrophils # 5.2 K/mcL (1.6-8.9); Platelet Count 177 K/mcL (140-400); Red Blood Count 5.03 M/mcL (3.82-4.97); Red Cell Distribution Width 14.6 % (11.5-14.5); Segmented Neutrophils % 79.4 %; White Blood Count 6.5 K/mcL (4.3-11.1)
[2021-01-02] MEDS ORDERED: lisinopriL 20 MG TABLET PO SCH (09:15)
[2021-01-02 09:26] LABS: Bilirubin,Urine Negative (Negative); Blood,Urine Trace (Negative); Clarity,Urine Clear (Clear); Color,Urine Light-Yellow (Yellow); Glucose,Urine (UA) >=1000 mg/dL (Normal); Ketones,Urine Negative (Negative); Leukocyte Esterase,Urine Negative (Negative); Nitrite,Urine Negative (Negative); PH,Urine 6.5 pH Units (5.0-8.0); Protein,Urine 200 mg/dL (Neg-Trace); Specific Gravity,Urine > 1.030 (1.010-1.025); Squamous Epithelial Cell,Urine Few per hpf (None-Few); Urobilinogen,Urine Normal (Normal); WBC,Urine 0-3 per hpf (0-3)
[2021-01-02 11:26] LABS: Alanine Aminotransferase 95 Units/L (7-52); Albumin 3.8 g/dL (3.5-5.7); Albumin/Globulin Ratio 1.2 (1.1-2.2); Alkaline Phosphatase 106 Units/L (34-104); Aspartate Amino Transferase 60 Units/L (13-39); BUN/Creatinine Ratio 37 (6-26); Bilirubin,Total 0.5 mg/dL (0.3-1.0); Blood Urea Nitrogen 16 mg/dL (8-23); Calcium 9.1 mg/dL (8.6-10.3); Carbon Dioxide 23 mEq/L (23-29); Chloride 97 mEq/L (98-107); Globulin 3.2 g/dL (2.4-3.5); Glucose 239 mg/dL (70-105); Osmolality,Calculated 285 (280-300); Potassium 4.5 mEq/L (3.5-5.1); Sodium 133 mEq/L (136-145); Troponin I < 0.03 ng/mL (< 0.04); eGFR For African Americans > 60 (> 60); eGFR For Non-African Americans > 60 (> 60)
[2021-01-02] MEDS: *HR* Enoxaparin 100 MG/ML SYRINGE SQ SCH ×2 (11:40→22:08)
[2021-01-02] MEDS: Sucralfate 1 GM TABLET PO SCH ×3 (12:04→22:09)
[2021-01-02] MEDS ORDERED: *HR* LORazepam 2 MG/ML VIAL IVP ONE ×4 (12:12→21:10)
[2021-01-02] MEDS: Levalbuterol 1 PUFF INHALER IH SCH ×4 (12:14→23:58)
[2021-01-02] MEDS ORDERED: Metoprolol XL (24 HR) Succ 50 MG TAB.ER.24H PO ONE (13:33)
[2021-01-02 14:37] LABS: ABG Base Excess 2 mEq/L (-2 to 3); ABG HCO3 27 mEq/L (21-27); ABG Oxygen Saturation 95 % (95-98); ABG PCO2 40 mmHg (35-45); ABG PH 7.44 pH Units (7.32-7.45); ABG PO2 73 mmHg (85-104); ABG TCO2 28 mEq/L (20-26)
[2021-01-02] MEDS ORDERED: *HR* Metoprolol 5 MG/5 ML VIAL IVP ONE ×3 (14:41→20:18)
[2021-01-02] MEDS: Gabapentin 300 MG CAPSULE PO SCH ×3 (15:01→22:09)
[2021-01-02] MEDS ORDERED: *HR* LORazepam 2 MG/ML VIAL ONE ×2 (20:18→20:38)
[2021-01-02] MEDS ORDERED: *HR* Labetalol 20 MG/4 ML SYRINGE IVP ONE (20:49)
[2021-01-02] MEDS ORDERED: rOPINIRole 1 MG TABLET PO SCH (21:00)
[2021-01-02] MEDS ORDERED: *HR* LORazepam 2 MG/ML VIAL IVP PRN (21:38)
[2021-01-03 00:31] LABS: ABG Base Excess 5 mEq/L (-2 to 3); ABG HCO3 33 mEq/L (21-27); ABG Oxygen Saturation 100 % (95-98); ABG PCO2 65 mmHg (35-45); ABG PH 7.31 pH Units (7.32-7.45); ABG PO2 302 mmHg (85-104); ABG TCO2 35 mEq/L (20-26)
[2021-01-03] MEDS: Insulin LISPRO 300 UNITS/3 ML VIAL SUBQ SCH ×4 (01:00→17:13)
[2021-01-03] MEDS: *HR* LORazepam 2 MG/ML VIAL IVP PRN ×3 (01:06→07:50)
[2021-01-03] MEDS ORDERED: Dexmedetomidine HCl 400 MCG/100 ML MLS IVC SCH (02:45)
[2021-01-03] MEDS: Levalbuterol 1 PUFF INHALER IH SCH ×6 (03:55→23:09)
[2021-01-03] MEDS ORDERED: *HR* Labetalol 20 MG/4 ML SYRINGE IVP ONE (04:21)
[2021-01-03] MEDS: Nicotine 21 MG PATCH.TD24 TD SCH (07:53)
[2021-01-03] MEDS: cefTRIAXone 2,000 MG in Water for inj. (sterile) 20 ML IVP SCH (07:54)
[2021-01-03] MEDS: Sucralfate 1 GM TABLET PO SCH (07:54)
[2021-01-03] MEDS ORDERED: Dexamethasone Sodium Phos/PF 10 MG/ML VIAL IVP ONE (08:19)
[2021-01-03] MEDS ORDERED: Amiodarone Premix 150 MG/100 ML BAG IVPB ONE (08:21)
[2021-01-03] MEDS ORDERED: Amiodarone Premix 360 MG/200 ML BAG IVC ONE (08:21)
[2021-01-03] MEDS ORDERED: Haloperidol Lactate 5 MG/ML VIAL IVP PRN (08:22)
[2021-01-03] MEDS ORDERED: *HR* Heparin 5,000 UNIT/ML VIAL IVP PRN ×2 (08:23)
[2021-01-03] MEDS ORDERED: Doxycycline 100 MG in 0.9 % Sodium Chloride Mini Bag 100 ML IVPB SCH (08:23)
[2021-01-03] MEDS ORDERED: Remdesivir 200 MG in 0.9 % Sodium Chloride 100 ML IVPB ONE (08:29)
[2021-01-03 08:31] LABS: Hematocrit 39.4 % (35.3-44.9); Hemoglobin 12.1 g/dL (11.5-15.4); Mean Corpuscular HGB Conc 30.7 g/dL (31.6-35.5); Mean Corpuscular Hemoglobin 25.4 pg (28.0-33.3); Mean Corpuscular Volume 82.6 fL (83.0-100.0); Mean Platelet Volume 11.6 fL (9.4-12.4); Platelet Count 200 K/mcL (140-400); Red Blood Count 4.77 M/mcL (3.82-4.97); Red Cell Distribution Width 14.9 % (11.5-14.5); White Blood Count 7.4 K/mcL (4.3-11.1)
[2021-01-03 08:50] LABS: BUN/Creatinine Ratio 33 (6-26); Blood Urea Nitrogen 14 mg/dL (8-23); Calcium 8.9 mg/dL (8.6-10.3); Carbon Dioxide 32 mEq/L (23-29); Chloride 93 mEq/L (98-107); Glucose 208 mg/dL (70-105); Osmolality,Calculated 277 (280-300); Potassium 4.6 mEq/L (3.5-5.1); Sodium 130 mEq/L (136-145); eGFR For African Americans > 60 (> 60); eGFR For Non-African Americans > 60 (> 60)
[2021-01-03] MEDS ORDERED: Furosemide 40 MG/4 ML VIAL IVP SCH (09:00)
[2021-01-03] MEDS ORDERED: Metoprolol XL (24 HR) Succ 50 MG TAB.ER.24H PO SCH (09:00)
[2021-01-03 09:12] LABS: Hematocrit 39.7 % (35.3-44.9); Hemoglobin 12.2 g/dL (11.5-15.4); Mean Corpuscular HGB Conc 30.7 g/dL (31.6-35.5); Mean Corpuscular Hemoglobin 25.4 pg (28.0-33.3); Mean Corpuscular Volume 82.7 fL (83.0-100.0); Platelet Count 206 K/mcL (140-400); Red Cell Distribution Width 15.1 % (11.5-14.5); White Blood Count 7.5 K/mcL (4.3-11.1)
[2021-01-03 09:20] LABS: Heparin anti-factor XA UFH 0.16 IU/mL (0.30-0.70); INR 1.2; Prothrombin Time 13.7 Seconds (9.4-12.1)
[2021-01-03 09:25] LABS: Albumin 3.7 g/dL (3.5-5.7); Albumin/Globulin Ratio 1.2 (1.1-2.2); Bilirubin,Direct 0.2 mg/dL (0.0-0.2); Bilirubin,Indirect 0.4 mg/dL (0.0-1.0); Bilirubin,Total 0.6 mg/dL (0.3-1.0); Globulin 3.2 g/dL (2.4-3.5); Total Protein 6.9 g/dL (6.4-8.9)
[2021-01-03] MEDS: Pantoprazole 40 MG VIAL IVP SCH (09:32)
[2021-01-03] MEDS: Insulin DETEMIR 100 UNIT/ML X5UNITS SUBQ SCH (09:32)
[2021-01-03] MEDS: *HR* Labetalol 20 MG/4 ML SYRINGE IVP PRN (10:14)
[2021-01-03] MEDS ORDERED: *HR* Propofol 200 MG/20 ML VIAL IVP ONE (10:48)
[2021-01-03] MEDS ORDERED: *HR* Rocuronium Bromide 50 MG/5 ML VIAL IVP ONE (10:48)
[2021-01-03] MEDS ORDERED: *HR* Midazolam HCl 5 MG/5 ML VIAL IVP ONE (10:48)
[2021-01-03] MEDS ORDERED: *HR* Succinylcholine 200 MG/10 ML VIAL IVP ONE (10:48)
[2021-01-03] MEDS: Heparin 25,000UNIT/250ML 1/2NS 25,000 UNIT/250 ML IV.SOLN IVC SCH ×2 (11:01→17:13)
[2021-01-03] MEDS ORDERED: Artificial Tears SOLN 15 ML BOTTLE BOTH EYES PRN (11:06)
[2021-01-03] MEDS ORDERED: Isovue-370 500 ML BOTTLE IVP ONE (11:28)
[2021-01-03] MEDS: FentaNYL (PF) 1,000 MCG/100 ML IV.SOLN IVC SCH ×3 (12:00→22:15)
[2021-01-03] MEDS: Norepinephrine 4 MG/254 ML IV.SOLN IVC SCH (12:00)
[2021-01-03] MEDS: Midazolam HCl 50 MG/100 ML IV.SOLN IVC SCH ×2 (12:00→20:14)
[2021-01-03 12:09] LABS: ABG Base Excess 6 mEq/L (-2 to 3); ABG HCO3 36 mEq/L (21-27); ABG Oxygen Saturation 99 % (95-98); ABG PCO2 76 mmHg (35-45); ABG PH 7.28 pH Units (7.32-7.45); ABG PO2 175 mmHg (85-104); ABG TCO2 38 mEq/L (20-26); Blood Gas Modality ASSIST CONTROL; Blood Gas VT 400 cc
[2021-01-03 12:33] LABS: Albumin 3.4 g/dL (3.5-5.7); Albumin/Globulin Ratio 1.1 (1.1-2.2); Bilirubin,Direct 0.2 mg/dL (0.0-0.2); Bilirubin,Indirect 0.4 mg/dL (0.0-1.0); Bilirubin,Total 0.6 mg/dL (0.3-1.0); Globulin 3.1 g/dL (2.4-3.5); Total Protein 6.5 g/dL (6.4-8.9)
[2021-01-03] MEDS: Cisatracurium 200 MG in 0.9 % Sodium Chloride 180 ML IVC SCH (13:30)
[2021-01-03] MEDS: Artificial Tears SOLN 15 ML BOTTLE BOTH EYES SCH ×3 (13:46→19:37)
[2021-01-03] MEDS ORDERED: Amiodarone Premix 360 MG/200 ML BAG IVC SCH (14:22)
[2021-01-03] MEDS ORDERED: 0.9 % Sodium Chloride 1,000 ML ONE (14:23)
[2021-01-03] MEDS: Phenylephrine 10 MG in 0.9 % Sodium Chloride 250 ML IVC SCH (15:17)
[2021-01-03] MEDS: Chlorhexidine Rinse 15 ML MOUTHWASH MM SCH (19:38)
[2021-01-03] MEDS: *HR* Heparin 5,000 UNIT/ML VIAL SQ SCH (22:39)
[2021-01-03 23:11] LABS: ABG Base Excess 5 mEq/L (-2 to 3); ABG HCO3 31 mEq/L (21-27); ABG Oxygen Saturation 98 % (95-98); ABG PCO2 50 mmHg (35-45); ABG PH 7.41 pH Units (7.32-7.45); ABG PO2 108 mmHg (85-104); ABG TCO2 33 mEq/L (20-26); Blood Gas VT 400 cc
[2021-01-04] MEDS: Insulin LISPRO 300 UNITS/3 ML VIAL SUBQ SCH ×5 (00:22→23:39)
[2021-01-04] MEDS: Artificial Tears SOLN 15 ML BOTTLE BOTH EYES SCH ×7 (00:22→23:39)
[2021-01-04] MEDS: Cisatracurium 200 MG in 0.9 % Sodium Chloride 180 ML IVC SCH ×2 (01:43→14:09)
[2021-01-04] MEDS: Levalbuterol 1 PUFF INHALER IH SCH ×3 (03:12→11:35)
[2021-01-04] MEDS ORDERED: Amiodarone Premix 360 MG/200 ML BAG IVC SCH (03:15)
[2021-01-04] MEDS: FentaNYL (PF) 1,000 MCG/100 ML IV.SOLN IVC SCH (03:35)
[2021-01-04 03:54] LABS: VBG Ionized Calcium 1.15 mmol/L (1.15-1.35)
[2021-01-04 03:56] LABS: Basophils % 0.3 %; Immature Granulocytes % 0.9 % (0-4); Lymphocytes % 21.3 %; Mean Corpuscular HGB Conc 30.6 g/dL (31.6-35.5); Mean Corpuscular Hemoglobin 25.5 pg (28.0-33.3); Mean Corpuscular Volume 83.5 fL (83.0-100.0); Mean Platelet Volume 11.4 fL (9.4-12.4); Monocytes # 0.3 K/mcL (0.0-1.3); Monocytes % 8.6 %; Neutrophils # 2.4 K/mcL (1.6-8.9); Platelet Count 195 K/mcL (140-400); Red Blood Count 4.31 M/mcL (3.82-4.97); Red Cell Distribution Width 14.6 % (11.5-14.5); Segmented Neutrophils % 68.9 %
[2021-01-04 04:03] LABS: Lymphocytes # 0.8 K/mcL (0.6-4.6); White Blood Count 3.5 K/mcL (4.3-11.1)
[2021-01-04] MEDS: Amiodarone Premix 360 MG/200 ML BAG IVC SCH ×2 (04:10→14:54)
[2021-01-04 04:14] LABS: Alanine Aminotransferase 71 Units/L (7-52); Albumin 3.1 g/dL (3.5-5.7); Alkaline Phosphatase 85 Units/L (34-104); Aspartate Amino Transferase 24 Units/L (13-39); BUN/Creatinine Ratio 44 (6-26); Bilirubin,Total 0.5 mg/dL (0.3-1.0); Blood Urea Nitrogen 25 mg/dL (8-23); C-Reactive Protein 184 mg/L (Less than 10); Calcium 8.8 mg/dL (8.6-10.3); Carbon Dioxide 32 mEq/L (23-29); Chloride 98 mEq/L (98-107); Glucose 244 mg/dL (70-105); Magnesium 2.1 mg/dL (1.6-2.6); Osmolality,Calculated 296 (280-300); Phosphorous 2.6 mg/dL (2.7-4.5); Sodium 137 mEq/L (136-145); Total Protein 6.1 g/dL (6.4-8.9); eGFR For African Americans > 60 (> 60); eGFR For Non-African Americans > 60 (> 60)
[2021-01-04 04:15] LABS: Albumin 3.1 g/dL (3.5-5.7); Albumin/Globulin Ratio 1.1 (1.1-2.2); Bilirubin,Direct 0.1 mg/dL (0.0-0.2); Bilirubin,Indirect 0.4 mg/dL (0.0-1.0); Bilirubin,Total 0.5 mg/dL (0.3-1.0); Globulin 2.9 g/dL (2.4-3.5)
[2021-01-04 04:34] LABS: Platelet Estimate Normal (Normal)
[2021-01-04] MEDS: Midazolam HCl 50 MG/100 ML IV.SOLN IVC SCH ×3 (04:34→19:50)
[2021-01-04 04:59] LABS: ABG Base Excess 6 mEq/L (-2 to 3); ABG HCO3 32 mEq/L (21-27); ABG Oxygen Saturation 93 % (95-98); ABG PCO2 48 mmHg (35-45); ABG PH 7.43 pH Units (7.32-7.45); ABG PO2 66 mmHg (85-104); ABG TCO2 33 mEq/L (20-26); Blood Gas VT 400 cc
[2021-01-04] MEDS: *HR* Heparin 5,000 UNIT/ML VIAL SQ SCH (05:54)
[2021-01-04] MEDS ORDERED: Furosemide 40 MG/4 ML VIAL IVP ONE (07:28)
[2021-01-04] MEDS ORDERED: *HR* Heparin 5,000 UNIT/ML VIAL IVP ONE (07:50)
[2021-01-04] MEDS ORDERED: *HR* Heparin 5,000 UNIT/ML VIAL IVP PRN ×2 (07:50)
[2021-01-04] MEDS: Chlorhexidine Rinse 15 ML MOUTHWASH MM SCH ×2 (08:13→20:38)
[2021-01-04] MEDS: Dexamethasone Sodium Phos/PF 10 MG/ML VIAL IVP SCH (08:13)
[2021-01-04] MEDS: Pantoprazole 40 MG VIAL IVP SCH (08:14)
[2021-01-04] MEDS: Insulin DETEMIR 100 UNIT/ML X5UNITS SUBQ SCH ×2 (08:14→20:38)
[2021-01-04] MEDS: Remdesivir 100 MG in 0.9 % Sodium Chloride 100 ML IVPB SCH (08:14)
[2021-01-04] MEDS: FentaNYL (PF) 2,500 MCG/50 ML IV.SOLN IVC SCH ×2 (09:18→19:50)
[2021-01-04] MEDS: Norepinephrine 4 MG/254 ML IV.SOLN IVC SCH (09:55)
[2021-01-04 10:03] LABS: INR 1.2; Prothrombin Time 13.9 Seconds (9.4-12.1)
[2021-01-04 10:06] LABS: Activated Partial Thrombo Time 26.3 Seconds (26.0-36.0)
[2021-01-04] MEDS: Heparin 25,000UNIT/250ML 1/2NS 25,000 UNIT/250 ML IV.SOLN IVC SCH (10:09)
[2021-01-04] MEDS: Dexmedetomidine HCl 400 MCG/100 ML MLS IVC SCH ×2 (12:43→18:09)
[2021-01-04] MEDS: Ipratropium 1 PUFF INHALER IH SCH ×4 (13:01→23:37)
[2021-01-04] MEDS: Phenylephrine 10 MG in 0.9 % Sodium Chloride 250 ML IVC SCH (14:10)
[2021-01-04] MEDS: Budesonide/Formoterol 160/4.5 1 PUFF INH IH SCH (19:31)
[2021-01-05] MEDS: Dexmedetomidine HCl 400 MCG/100 ML MLS IVC SCH ×6 (01:12→20:45)
[2021-01-05] MEDS: Amiodarone Premix 360 MG/200 ML BAG IVC SCH ×2 (02:21→14:27)
[2021-01-05] MEDS: Midazolam HCl 50 MG/100 ML IV.SOLN IVC SCH ×2 (02:22→17:04)
[2021-01-05] MEDS: Artificial Tears SOLN 15 ML BOTTLE BOTH EYES SCH ×5 (02:58→19:41)
[2021-01-05] MEDS: Ipratropium 1 PUFF INHALER IH SCH ×6 (03:34→23:31)
[2021-01-05 03:43] LABS: Basophils % 0.5 %; Hematocrit 40.8 % (35.3-44.9); Hemoglobin 12.1 g/dL (11.5-15.4); Lymphocytes # 0.7 K/mcL (0.6-4.6); Lymphocytes % 11.9 %; Mean Corpuscular HGB Conc 29.7 g/dL (31.6-35.5); Mean Corpuscular Hemoglobin 24.8 pg (28.0-33.3); Mean Corpuscular Volume 83.6 fL (83.0-100.0); Mean Platelet Volume 11.7 fL (9.4-12.4); Monocytes # 0.5 K/mcL (0.0-1.3); Monocytes % 7.5 %; Neutrophils # 4.8 K/mcL (1.6-8.9); Platelet Count 244 K/mcL (140-400); Red Blood Count 4.88 M/mcL (3.82-4.97); Segmented Neutrophils % 79.1 %
[2021-01-05 03:46] LABS: White Blood Count 6.1 K/mcL (4.3-11.1)
[2021-01-05 03:57] LABS: VBG Ionized Calcium 1.19 mmol/L (1.15-1.35)
[2021-01-05] MEDS: Heparin 25,000UNIT/250ML 1/2NS 25,000 UNIT/250 ML IV.SOLN IVC SCH (04:00)
[2021-01-05 04:07] LABS: Alanine Aminotransferase 64 Units/L (7-52); Albumin 3.1 g/dL (3.5-5.7); Alkaline Phosphatase 92 Units/L (34-104); Aspartate Amino Transferase 29 Units/L (13-39); BUN/Creatinine Ratio 60 (6-26); Bilirubin,Direct 0.1 mg/dL (0.0-0.2); Bilirubin,Indirect 0.3 mg/dL (0.0-1.0); Bilirubin,Total 0.4 mg/dL (0.3-1.0); Blood Urea Nitrogen 44 mg/dL (8-23); C-Reactive Protein 120 mg/L (Less than 10); Calcium 8.9 mg/dL (8.6-10.3); Carbon Dioxide 32 mEq/L (23-29); Chloride 100 mEq/L (98-107); Globulin 3.1 g/dL (2.4-3.5); Glucose 268 mg/dL (70-105); Magnesium 2.3 mg/dL (1.6-2.6); Osmolality,Calculated 309 (280-300); Phosphorous 3.8 mg/dL (2.7-4.5); Potassium 4.4 mEq/L (3.5-5.1); Sodium 139 mEq/L (136-145); Total Protein 6.2 g/dL (6.4-8.9); eGFR For African Americans > 60 (> 60); eGFR For Non-African Americans > 60 (> 60)
[2021-01-05 04:16] LABS: Platelet Estimate Normal (Normal); Reactive Lymphocytes Present (Not Present)
[2021-01-05 04:41] LABS: ABG Base Excess 7 mEq/L (-2 to 3); ABG HCO3 34 mEq/L (21-27); ABG Oxygen Saturation 93 % (95-98); ABG PCO2 57 mmHg (35-45); ABG PH 7.38 pH Units (7.32-7.45); ABG PO2 71 mmHg (85-104); ABG TCO2 35 mEq/L (20-26); Blood Gas Modality ASSIST CONTROL; Blood Gas VT 380 cc
[2021-01-05] MEDS: Insulin LISPRO 300 UNITS/3 ML VIAL SUBQ SCH ×3 (05:37→17:06)
[2021-01-05] MEDS: Pantoprazole 40 MG VIAL IVP SCH (07:50)
[2021-01-05] MEDS: Chlorhexidine Rinse 15 ML MOUTHWASH MM SCH ×2 (07:50→19:41)
[2021-01-05] MEDS: Dexamethasone Sodium Phos/PF 10 MG/ML VIAL IVP SCH (07:51)
[2021-01-05] MEDS: Remdesivir 100 MG in 0.9 % Sodium Chloride 100 ML IVPB SCH (07:56)
[2021-01-05] MEDS: Insulin DETEMIR 100 UNIT/ML X5UNITS SUBQ SCH ×2 (07:57→19:42)
[2021-01-05] MEDS: Budesonide/Formoterol 160/4.5 1 PUFF INH IH SCH ×2 (08:19→19:33)
[2021-01-05] MEDS: FentaNYL (PF) 2,500 MCG/50 ML IV.SOLN IVC SCH (08:53)
[2021-01-05] MEDS: Norepinephrine 4 MG/254 ML IV.SOLN IVC SCH (11:25)
[2021-01-05] MEDS: Phenylephrine 10 MG in 0.9 % Sodium Chloride 250 ML IVC SCH (14:06)
[2021-01-05] MEDS: Furosemide 40 MG/4 ML VIAL IVP SCH ×2 (14:27→19:42)
[2021-01-05 15:59] LABS: Bilirubin,Urine Negative (Negative); Blood,Urine Small (Negative); Budding Yeast,Urine Few per hpf (None Seen); Clarity,Urine Clear (Clear); Color,Urine Light-Yellow (Yellow); Glucose,Urine (UA) 300 mg/dL (Normal); Hyaline Casts,Urine Few per lpf (None Seen); Ketones,Urine Negative (Negative); Leukocyte Esterase,Urine Trace (Negative); Mucus,Urine Few per lpf (None-Few); Nitrite,Urine Negative (Negative); PH,Urine 6.5 pH Units (5.0-8.0); Protein,Urine 50 mg/dL (Neg-Trace); RBC,Urine 0-3 per hpf (0-3); Specific Gravity,Urine 1.026 (1.010-1.025); Squamous Epithelial Cell,Urine Few per hpf (None-Few); Urobilinogen,Urine Normal (Normal)
[2021-01-05] MEDS ORDERED: *HR* Metoprolol 5 MG/5 ML VIAL IVP ONE (18:16)
[2021-01-05] MEDS: *HR* Metoprolol 5 MG/5 ML VIAL IVP PRN (18:47)
[2021-01-06] MEDS: Dexmedetomidine HCl 400 MCG/100 ML MLS IVC SCH ×5 (00:30→17:23)
[2021-01-06] MEDS: Heparin 25,000UNIT/250ML 1/2NS 25,000 UNIT/250 ML IV.SOLN IVC SCH ×2 (00:47→21:56)
[2021-01-06] MEDS: Artificial Tears SOLN 15 ML BOTTLE BOTH EYES SCH ×7 (00:48→23:53)
[2021-01-06] MEDS: Insulin LISPRO 300 UNITS/3 ML VIAL SUBQ SCH ×5 (00:49→23:52)
[2021-01-06] MEDS: Midazolam HCl 50 MG/100 ML IV.SOLN IVC SCH (02:27)
[2021-01-06] MEDS: FentaNYL (PF) 2,500 MCG/50 ML IV.SOLN IVC SCH (02:45)
[2021-01-06] MEDS: Ipratropium 1 PUFF INHALER IH SCH ×6 (03:20→23:58)
[2021-01-06 03:55] LABS: Basophils % 0.2 %; Hematocrit 40.2 % (35.3-44.9); Hemoglobin 12.4 g/dL (11.5-15.4); Immature Granulocytes % 1.1 % (0-4); Mean Corpuscular HGB Conc 30.8 g/dL (31.6-35.5); Mean Corpuscular Hemoglobin 25.7 pg (28.0-33.3); Mean Corpuscular Volume 83.4 fL (83.0-100.0); Mean Platelet Volume 10.9 fL (9.4-12.4); Monocytes # 0.6 K/mcL (0.0-1.3); Monocytes % 10.7 %; Neutrophils # 3.7 K/mcL (1.6-8.9); Platelet Count 263 K/mcL (140-400); Red Blood Count 4.82 M/mcL (3.82-4.97); White Blood Count 5.3 K/mcL (4.3-11.1)
[2021-01-06] MEDS: Amiodarone Premix 360 MG/200 ML BAG IVC SCH (04:05)
[2021-01-06 04:15] LABS: Alanine Aminotransferase 55 Units/L (7-52); Albumin 3.2 g/dL (3.5-5.7); Alkaline Phosphatase 80 Units/L (34-104); Aspartate Amino Transferase 26 Units/L (13-39); BUN/Creatinine Ratio 61 (6-26); Bilirubin,Total 0.4 mg/dL (0.3-1.0); Blood Urea Nitrogen 42 mg/dL (8-23); C-Reactive Protein 62 mg/L (Less than 10); Calcium 8.9 mg/dL (8.6-10.3); Carbon Dioxide 36 mEq/L (23-29); Chloride 98 mEq/L (98-107); Globulin 3.1 g/dL (2.4-3.5); Glucose 227 mg/dL (70-105); Magnesium 2.1 mg/dL (1.6-2.6); Osmolality,Calculated 310 (280-300); Phosphorous 3.9 mg/dL (2.7-4.5); Sodium 141 mEq/L (136-145); Total Protein 6.3 g/dL (6.4-8.9); eGFR For African Americans > 60 (> 60); eGFR For Non-African Americans > 60 (> 60)
[2021-01-06 04:16] LABS: Albumin 3.3 g/dL (3.5-5.7); Albumin/Globulin Ratio 1.1 (1.1-2.2); Bilirubin,Direct 0.1 mg/dL (0.0-0.2); Bilirubin,Indirect 0.3 mg/dL (0.0-1.0); Bilirubin,Total 0.4 mg/dL (0.3-1.0); Platelet Estimate Normal (Normal); Reactive Lymphocytes Present (Not Present); Total Protein 6.3 g/dL (6.4-8.9)
[2021-01-06 04:28] LABS: VBG Ionized Calcium 1.18 mmol/L (1.15-1.35)
[2021-01-06 04:53] LABS: ABG Base Excess 10 mEq/L (-2 to 3); ABG HCO3 37 mEq/L (21-27); ABG Oxygen Saturation 94 % (95-98); ABG PCO2 61 mmHg (35-45); ABG PH 7.39 pH Units (7.32-7.45); ABG PO2 75 mmHg (85-104); ABG TCO2 39 mEq/L (20-26); Blood Gas VT 380 cc
[2021-01-06] MEDS: Budesonide/Formoterol 160/4.5 1 PUFF INH IH SCH ×2 (07:39→20:26)
[2021-01-06] MEDS: *HR* Metoprolol 5 MG/5 ML VIAL IVP PRN (08:59)
[2021-01-06] MEDS: Pantoprazole 40 MG VIAL IVP SCH (08:59)
[2021-01-06] MEDS: Chlorhexidine Rinse 15 ML MOUTHWASH MM SCH ×2 (08:59→19:32)
[2021-01-06] MEDS: Insulin DETEMIR 100 UNIT/ML X5UNITS SUBQ SCH ×2 (09:00→20:44)
[2021-01-06] MEDS: Dexamethasone Sodium Phos/PF 10 MG/ML VIAL IVP SCH (09:00)
[2021-01-06] MEDS: Furosemide 40 MG/4 ML VIAL IVP SCH ×2 (09:00→19:33)
[2021-01-06] MEDS: Remdesivir 100 MG in 0.9 % Sodium Chloride 100 ML IVPB SCH (09:01)
[2021-01-06] MEDS: Norepinephrine 4 MG/254 ML IV.SOLN IVC SCH (10:42)
[2021-01-06] MEDS: Cisatracurium 200 MG in 0.9 % Sodium Chloride 180 ML IVC SCH (10:42)
[2021-01-06] MEDS: Phenylephrine 10 MG in 0.9 % Sodium Chloride 250 ML IVC SCH (10:43)
[2021-01-06] MEDS: *HR* Labetalol 20 MG/4 ML SYRINGE IVP PRN ×2 (10:46→17:30)
[2021-01-06] MEDS: hydrALAZINE 25 MG TABLET PO SCH ×2 (18:50→23:33)
[2021-01-06] MEDS: lisinopriL 20 MG TABLET PO SCH (18:50)
[2021-01-06] MEDS: Gabapentin 300 MG CAPSULE PO SCH (19:34)
[2021-01-06] MEDS: rOPINIRole 1 MG TABLET PO SCH (19:34)
[2021-01-07] MEDS: Ipratropium 1 PUFF INHALER IH SCH ×6 (04:06→23:36)
[2021-01-07] MEDS: Artificial Tears SOLN 15 ML BOTTLE BOTH EYES SCH ×2 (05:07→09:00)
[2021-01-07] MEDS: Insulin LISPRO 300 UNITS/3 ML VIAL SUBQ SCH ×6 (06:16→23:40)
[2021-01-07 06:51] LABS: Basophils % 0.3 %; Eosinophils % 0.1 %; Hematocrit 40.5 % (35.3-44.9); Hemoglobin 12.7 g/dL (11.5-15.4); Immature Granulocytes % 1.3 % (0-4); Immature Platelets 6.9 % (1.1-6.1); Lymphocytes # 1.5 K/mcL (0.6-4.6); Lymphocytes % 20.1 %; Mean Corpuscular HGB Conc 31.4 g/dL (31.6-35.5); Mean Corpuscular Hemoglobin 25.6 pg (28.0-33.3); Mean Corpuscular Volume 81.7 fL (83.0-100.0); Mean Platelet Volume 11.3 fL (9.4-12.4); Monocytes # 0.7 K/mcL (0.0-1.3); Monocytes % 8.7 %; Neutrophils # 5.2 K/mcL (1.6-8.9); Platelet Count 210 K/mcL (140-400); Red Blood Count 4.96 M/mcL (3.82-4.97); Red Cell Distribution Width 14.9 % (11.5-14.5); Segmented Neutrophils % 69.5 %; White Blood Count 7.5 K/mcL (4.3-11.1)
[2021-01-07 06:52] LABS: VBG Ionized Calcium 1.13 mmol/L (1.15-1.35)
[2021-01-07 06:57] LABS: Heparin anti-factor XA UFH 0.42 IU/mL (0.30-0.70)
[2021-01-07 07:12] LABS: Platelet Estimate Normal (Normal)
[2021-01-07 07:48] LABS: Alanine Aminotransferase 45 Units/L (7-52); Albumin 3.3 g/dL (3.5-5.7); Albumin/Globulin Ratio 1.2 (1.1-2.2); Alkaline Phosphatase 70 Units/L (34-104); Aspartate Amino Transferase 26 Units/L (13-39); BUN/Creatinine Ratio 52 (6-26); Bilirubin,Direct 0.2 mg/dL (0.0-0.2); Bilirubin,Indirect 0.6 mg/dL (0.0-1.0); Bilirubin,Total 0.8 mg/dL (0.3-1.0); Blood Urea Nitrogen 33 mg/dL (8-23); Carbon Dioxide 40 mEq/L (23-29); Chloride 96 mEq/L (98-107); Globulin 2.8 g/dL (2.4-3.5); Glucose 126 mg/dL (70-105); Magnesium 1.8 mg/dL (1.6-2.6); Osmolality,Calculated 305 (280-300); Potassium 3.2 mEq/L (3.5-5.1); Sodium 143 mEq/L (136-145); Total Protein 6.1 g/dL (6.4-8.9); eGFR For African Americans > 60 (> 60); eGFR For Non-African Americans > 60 (> 60)
[2021-01-07] MEDS: Budesonide/Formoterol 160/4.5 1 PUFF INH IH SCH ×2 (08:25→20:25)
[2021-01-07] MEDS: Furosemide 40 MG/4 ML VIAL IVP SCH (09:05)
[2021-01-07] MEDS: Chlorhexidine Rinse 15 ML MOUTHWASH MM SCH (09:05)
[2021-01-07] MEDS: Pantoprazole 40 MG VIAL IVP SCH (09:06)
[2021-01-07] MEDS: Dexamethasone Sodium Phos/PF 10 MG/ML VIAL IVP SCH (09:06)
[2021-01-07] MEDS: lisinopriL 20 MG TABLET PO SCH (09:07)
[2021-01-07] MEDS: Gabapentin 300 MG CAPSULE PO SCH ×3 (09:07→21:06)
[2021-01-07] MEDS: Remdesivir 100 MG in 0.9 % Sodium Chloride 100 ML IVPB SCH (09:07)
[2021-01-07] MEDS: rOPINIRole 1 MG TABLET PO SCH ×2 (09:07→21:06)
[2021-01-07] MEDS: Insulin DETEMIR 100 UNIT/ML X5UNITS SUBQ SCH ×2 (09:07→21:07)
[2021-01-07 10:38] LABS: C-Reactive Protein 35 mg/L (Less than 10)
[2021-01-07] MEDS ORDERED: *HR* Enoxaparin 100 MG/ML SYRINGE SQ SCH (12:00)
[2021-01-07] MEDS ORDERED: Dextrose Gel 15 GM/37.5 ML TUBE PO PRN ×2 (15:51)
[2021-01-07] MEDS ORDERED: Naloxone 0.4 MG/ML INJ IVP PRN (15:51)
[2021-01-07] MEDS ORDERED: D5% in Water 1,000 ML IVC PRN (15:51)
[2021-01-07] MEDS ORDERED: *HR* Dextrose 50 % in Water (Vial) 50 ML VIAL IVP PRN (15:51)
[2021-01-07] MEDS ORDERED: Ondansetron 4 MG/2 ML VIAL IVP PRN (15:51)
[2021-01-07] MEDS ORDERED: Perflutren Lipid Microsphere 1.3 ML in 0.9 % Sodium Chloride 8.7 ML IVP PRN (15:51)
[2021-01-07] MEDS ORDERED: Insulin LISPRO 300 UNITS/3 ML VIAL SUBQ SCH (21:00)
[2021-01-07] MEDS ORDERED: Melatonin 3 MG TABLET PO SCH (21:00)
[2021-01-07] MEDS: Melatonin 3 MG TABLET PO SCH (21:06)
[2021-01-07] MEDS: *HR* Enoxaparin 100 MG/ML SYRINGE SQ SCH (21:07)
[2021-01-08] MEDS: Ipratropium 1 PUFF INHALER IH SCH ×5 (03:38→20:12)
[2021-01-08 05:03] LABS: Basophils % 0.2 %; Eosinophils % 0.3 %; Hemoglobin 12.3 g/dL (11.5-15.4); Immature Granulocytes % 1.3 % (0-4); Lymphocytes # 1.3 K/mcL (0.6-4.6); Lymphocytes % 11.7 %; Mean Corpuscular HGB Conc 31.5 g/dL (31.6-35.5); Mean Corpuscular Hemoglobin 25.7 pg (28.0-33.3); Mean Corpuscular Volume 81.6 fL (83.0-100.0); Mean Platelet Volume 11.3 fL (9.4-12.4); Monocytes # 0.8 K/mcL (0.0-1.3); Monocytes % 6.9 %; Neutrophils # 8.9 K/mcL (1.6-8.9); Platelet Count 293 K/mcL (140-400); Red Blood Count 4.78 M/mcL (3.82-4.97); Segmented Neutrophils % 79.6 %; White Blood Count 11.1 K/mcL (4.3-11.1)
[2021-01-08 05:22] LABS: BUN/Creatinine Ratio 45 (6-26); Blood Urea Nitrogen 32 mg/dL (8-23); Calcium 8.9 mg/dL (8.6-10.3); Carbon Dioxide 35 mEq/L (23-29); Chloride 95 mEq/L (98-107); Glucose 148 mg/dL (70-105); Magnesium 1.9 mg/dL (1.6-2.6); Osmolality,Calculated 296 (280-300); Potassium 3.3 mEq/L (3.5-5.1); Sodium 138 mEq/L (136-145); eGFR For African Americans > 60 (> 60); eGFR For Non-African Americans > 60 (> 60)
[2021-01-08] MEDS: lisinopriL 20 MG TABLET PO SCH (07:32)
[2021-01-08] MEDS: rOPINIRole 1 MG TABLET PO SCH ×2 (07:32→20:32)
[2021-01-08] MEDS: Gabapentin 300 MG CAPSULE PO SCH ×3 (07:33→20:31)
[2021-01-08] MEDS: *HR* Enoxaparin 100 MG/ML SYRINGE SQ SCH ×2 (07:34→20:32)
[2021-01-08] MEDS: Insulin DETEMIR 100 UNIT/ML X5UNITS SUBQ SCH ×2 (07:36→20:35)
[2021-01-08] MEDS: Budesonide/Formoterol 160/4.5 1 PUFF INH IH SCH ×2 (07:55→20:13)
[2021-01-08] MEDS: Insulin LISPRO 300 UNITS/3 ML VIAL SUBQ SCH ×4 (08:02→20:36)
[2021-01-08] MEDS ORDERED: Dexamethasone Sodium Phos/PF 10 MG/ML VIAL IVP SCH (09:00)
[2021-01-08] MEDS ORDERED: Furosemide 20 MG/2 ML VIAL IVP ONE (11:35)
[2021-01-08 18:13] LABS: Basophils % 0.2 %; Hematocrit 42.3 % (35.3-44.9); Hemoglobin 13.4 g/dL (11.5-15.4); Immature Granulocytes % 1.1 % (0-4); Lymphocytes # 0.6 K/mcL (0.6-4.6); Lymphocytes % 6.2 %; Mean Corpuscular HGB Conc 31.7 g/dL (31.6-35.5); Mean Corpuscular Hemoglobin 25.9 pg (28.0-33.3); Mean Corpuscular Volume 81.7 fL (83.0-100.0); Mean Platelet Volume 11.3 fL (9.4-12.4); Monocytes # 0.4 K/mcL (0.0-1.3); Monocytes % 4.5 %; Neutrophils # 8.2 K/mcL (1.6-8.9); Platelet Count 298 K/mcL (140-400); Red Blood Count 5.18 M/mcL (3.82-4.97); Red Cell Distribution Width 15.4 % (11.5-14.5); White Blood Count 9.3 K/mcL (4.3-11.1)
[2021-01-08 18:34] LABS: BUN/Creatinine Ratio 42 (6-26); Blood Urea Nitrogen 30 mg/dL (8-23); Calcium 9.7 mg/dL (8.6-10.3); Carbon Dioxide 33 mEq/L (23-29); Chloride 94 mEq/L (98-107); Glucose 299 mg/dL (70-105); Osmolality,Calculated 299 (280-300); Sodium 136 mEq/L (136-145); eGFR For African Americans > 60 (> 60); eGFR For Non-African Americans > 60 (> 60)
[2021-01-08] MEDS ORDERED: *HR* OxyCODONE Immed Rel 5 MG TABLET PO PRN (20:11)
[2021-01-08] MEDS: Melatonin 3 MG TABLET PO SCH (20:31)
[2021-01-08] MEDS: ALPRAZolam 0.5 MG TABLET PO PRN (20:52)
[2021-01-09] MEDS: Acetaminophen 325 MG TABLET PO PRN (00:08)
[2021-01-09] MEDS: Ipratropium 1 PUFF INHALER IH SCH ×6 (04:59→20:36)
[2021-01-09 05:39] LABS: Hematocrit 40.4 % (35.3-44.9); Hemoglobin 12.3 g/dL (11.5-15.4); Mean Corpuscular HGB Conc 30.4 g/dL (31.6-35.5); Mean Corpuscular Hemoglobin 25.3 pg (28.0-33.3); Mean Platelet Volume 11.3 fL (9.4-12.4); Platelet Count 259 K/mcL (140-400); Red Blood Count 4.87 M/mcL (3.82-4.97); Red Cell Distribution Width 15.2 % (11.5-14.5); White Blood Count 11.3 K/mcL (4.3-11.1)
[2021-01-09 06:06] LABS: BUN/Creatinine Ratio 45 (6-26); Blood Urea Nitrogen 29 mg/dL (8-23); Calcium 9.7 mg/dL (8.6-10.3); Carbon Dioxide 35 mEq/L (23-29); Chloride 94 mEq/L (98-107); Glucose 128 mg/dL (70-105); Osmolality,Calculated 293 (280-300); Potassium 3.5 mEq/L (3.5-5.1); Sodium 138 mEq/L (136-145); eGFR For African Americans > 60 (> 60); eGFR For Non-African Americans > 60 (> 60)
[2021-01-09] MEDS: Budesonide/Formoterol 160/4.5 1 PUFF INH IH SCH ×2 (07:50→20:36)
[2021-01-09] MEDS ORDERED: Furosemide 40 MG TABLET PO SCH (08:00)
[2021-01-09] MEDS: rOPINIRole 1 MG TABLET PO SCH ×2 (08:11→20:32)
[2021-01-09] MEDS: lisinopriL 20 MG TABLET PO SCH (08:11)
[2021-01-09] MEDS: Gabapentin 300 MG CAPSULE PO SCH ×3 (08:12→20:31)
[2021-01-09] MEDS: *HR* Enoxaparin 100 MG/ML SYRINGE SQ SCH ×2 (08:12→20:30)
[2021-01-09] MEDS: Insulin DETEMIR 100 UNIT/ML X5UNITS SUBQ SCH ×2 (08:13→20:33)
[2021-01-09] MEDS: Insulin LISPRO 300 UNITS/3 ML VIAL SUBQ SCH ×3 (08:14→16:23)
[2021-01-09] MEDS ORDERED: dexAMETHasone 4 MG TABLET PO SCH (09:00)
[2021-01-09] MEDS ORDERED: dexAMETHasone 4 MG TABLET PO ONE (09:46)
[2021-01-09] MEDS ORDERED: Insulin LISPRO 300 UNITS/3 ML VIAL SUBQ SCH (09:48)
[2021-01-09] MEDS: Furosemide 40 MG TABLET PO SCH (16:23)
[2021-01-09] MEDS: Melatonin 3 MG TABLET PO SCH (20:32)
[2021-01-09] MEDS: ALPRAZolam 0.5 MG TABLET PO PRN (23:19)
[2021-01-10] MEDS: Ipratropium 1 PUFF INHALER IH SCH ×4 (00:06→11:43)
[2021-01-10 03:10] VITALS: BP 131/64
[2021-01-10] MEDS: Acetaminophen 325 MG TABLET PO PRN (04:06)
[2021-01-10 05:07] LABS: Hematocrit 39.4 % (35.3-44.9); Hemoglobin 12.2 g/dL (11.5-15.4); Mean Corpuscular Hemoglobin 25.5 pg (28.0-33.3); Mean Corpuscular Volume 82.4 fL (83.0-100.0); Mean Platelet Volume 11.4 fL (9.4-12.4); Platelet Count 227 K/mcL (140-400); Red Blood Count 4.78 M/mcL (3.82-4.97); Red Cell Distribution Width 15.2 % (11.5-14.5); White Blood Count 10.4 K/mcL (4.3-11.1)
[2021-01-10 05:30] LABS: BUN/Creatinine Ratio 36 (6-26); Blood Urea Nitrogen 23 mg/dL (8-23); Calcium 9.2 mg/dL (8.6-10.3); Carbon Dioxide 32 mEq/L (23-29); Chloride 92 mEq/L (98-107); Glucose 392 mg/dL (70-105); Osmolality,Calculated 298 (280-300); Potassium 3.5 mEq/L (3.5-5.1); Sodium 134 mEq/L (136-145); eGFR For African Americans > 60 (> 60); eGFR For Non-African Americans > 60 (> 60)
[2021-01-10] MEDS: Budesonide/Formoterol 160/4.5 1 PUFF INH IH SCH (07:47)
[2021-01-10] MEDS: lisinopriL 20 MG TABLET PO SCH (08:08)
[2021-01-10] MEDS: Furosemide 40 MG TABLET PO SCH (08:08)
[2021-01-10] MEDS: rOPINIRole 1 MG TABLET PO SCH (08:08)
[2021-01-10] MEDS: Gabapentin 300 MG CAPSULE PO SCH (08:08)
[2021-01-10] MEDS: Insulin DETEMIR 100 UNIT/ML X5UNITS SUBQ SCH (08:09)
[2021-01-10] MEDS: Insulin LISPRO 300 UNITS/3 ML VIAL SUBQ SCH ×2 (08:10→12:06)
[2021-01-10] MEDS ORDERED: dexAMETHasone 4 MG TABLET PO SCH (09:00)
[2021-01-10 09:28] LABS: Estimated Average Glucose 214 mg/dl; Hemoglobin A1C 9.1 %
[2021-01-10] MEDS: *HR* Enoxaparin 100 MG/ML SYRINGE SQ SCH (12:00)
== END 2021-01-10 17:50 | DRG 208 ==
LOC: 2ANU 18:45 → EMEROOARM 18:45 → SUATTDRO 21:47 → 2ANU 23:19 → 2NENU 01-03 03:51 → ICNU 01-03 12:43 → 2NENU 01-08 22:06
PROVIDERS: ADMIT Internal Medicine; ATTEND Internal Medicine

== ENCOUNTER 2021-10-04 12:07 | Inpatient (IN) ==
[2021-10-04] MEDS ORDERED: 0.9 % Sodium Chloride 1,000 ML IV ONE (12:32)
[2021-10-04] MEDS ORDERED: cefTRIAXone 1,000 MG in Water for inj. (sterile) 10 ML IVP ONE (12:32)
[2021-10-04 12:45] LABS: Basophils % 0.3 %; Eosinophils % 0.2 %; Immature Granulocytes % 0.6 % (0-4); Lymphocytes % 9.7 %; Mean Corpuscular HGB Conc 31.6 g/dL (31.6-35.5); Mean Corpuscular Hemoglobin 25.9 pg (28.0-33.3); Mean Corpuscular Volume 81.9 fL (83.0-100.0); Mean Platelet Volume 12.2 fL (9.4-12.4); Monocytes # 0.9 K/mcL (0.0-1.3); Monocytes % 8.9 %; Neutrophils # 8.4 K/mcL (1.6-8.9); Platelet Count 129 K/mcL (140-400); Red Blood Count 4.64 M/mcL (3.82-4.97); Red Cell Distribution Width 14.9 % (11.5-14.5); Segmented Neutrophils % 80.3 %; White Blood Count 10.5 K/mcL (4.3-11.1)
[2021-10-04 13:03] LABS: Alanine Aminotransferase 24 Units/L (7-52); Albumin/Globulin Ratio 1.5 (1.1-2.2); Alkaline Phosphatase 69 Units/L (34-104); Aspartate Amino Transferase 18 Units/L (13-39); BUN/Creatinine Ratio 19 (6-26); Bilirubin,Indirect 0.5 mg/dL (0.0-1.0); Bilirubin,Total 0.5 mg/dL (0.3-1.0); Blood Urea Nitrogen 15 mg/dL (8-23); Calcium 9.6 mg/dL (8.6-10.3); Carbon Dioxide 24 mEq/L (23-29); Chloride 94 mEq/L (98-107); Globulin 2.7 g/dL (2.4-3.5); Glucose 266 mg/dL (70-105); Lipase 26 Units/L (11-82); Osmolality,Calculated 288 (280-300); Potassium 3.5 mEq/L (3.5-5.1); Sodium 134 mEq/L (136-145); Total Protein 6.7 g/dL (6.4-8.9); Troponin I < 0.03 ng/mL (< 0.04); eGFR For African Americans > 60 (> 60); eGFR For Non-African Americans > 60 (> 60)
[2021-10-04 13:20] LABS: VBG HCO3 25 mEq/L (21-27); VBG PCO2 32 mmHg (41-51); VBG PH 7.51 pH Units (7.32-7.42); VBG PO2 172 mmHg (25-50)
[2021-10-04 13:25] LABS: Influenza A PCR Negative (Negative); Influenza B PCR Negative (Negative); Resp. Syncytial Virus PCR Negative (Negative)
[2021-10-04 13:26] LABS: SARS-CoV-2 by PCR (In House) Negative (Negative)
[2021-10-04 13:45] LABS: Amorphous Sediment,Urine Few per hpf (None-Few); Bacteria,Urine Few per hpf (None-Few); Bilirubin,Urine Negative (Negative); Blood,Urine Small (Negative); Clarity,Urine Ex.Turbid (Clear); Color,Urine Dark-Yellow (Yellow); Glucose,Urine (UA) 500 mg/dL (Normal); Ketones,Urine Trace mg/dL (Negative); Leukocyte Esterase,Urine Large (Negative); Nitrite,Urine Positive (Negative); PH,Urine 5.5 pH Units (5.0-8.0); Protein,Urine >=300 mg/dL (Neg-Trace); RBC,Urine 30-50 per hpf (0-3); Specific Gravity,Urine 1.021 (1.010-1.025); Squamous Epithelial Cell,Urine Many per hpf (None-Few); Transitional Epi Cells,Urine Few per hpf (None-Few); Urobilinogen,Urine Normal (Normal); WBC,Urine TNTC per hpf (0-3)
[2021-10-04] MEDS ORDERED: D5% in Water 1,000 ML IVC PRN (15:09)
[2021-10-04] MEDS ORDERED: Naloxone 0.4 MG/ML INJ IVP PRN (15:09)
[2021-10-04] MEDS ORDERED: *HR* Dextrose 50 % in Water (Syg) 50 ML SYRINGE IVP PRN (15:09)
[2021-10-04] MEDS ORDERED: Ondansetron 4 MG/2 ML VIAL IVP PRN (15:09)
[2021-10-04] MEDS ORDERED: Dextrose Gel 15 GM/37.5 ML TUBE PO PRN ×2 (15:09)
[2021-10-04] MEDS ORDERED: *HR* Metoprolol 5 MG/5 ML VIAL IVP PRN (15:22)
[2021-10-04] MEDS: 0.9 % Sodium Chloride 1,000 ML IVC SCH (18:17)
[2021-10-04] MEDS: *HR* Heparin 5,000 UNIT/ML VIAL SQ SCH (18:17)
[2021-10-04] MEDS: Insulin LISPRO 300 UNITS/3 ML VIAL SUBQ SCH (18:26)
[2021-10-05 04:47] LABS: Basophils % 0.4 %; Eosinophils # 0.1 K/mcL (0.0-0.6); Eosinophils % 0.8 %; Hematocrit 32.6 % (35.3-44.9); Hemoglobin 9.9 g/dL (11.5-15.4); Immature Granulocytes % 0.6 % (0-4); Immature Platelets 10.5 % (1.1-6.1); Lymphocytes # 1.6 K/mcL (0.6-4.6); Lymphocytes % 20.4 %; Mean Corpuscular HGB Conc 30.4 g/dL (31.6-35.5); Mean Corpuscular Hemoglobin 25.3 pg (28.0-33.3); Mean Corpuscular Volume 83.2 fL (83.0-100.0); Mean Platelet Volume 12.1 fL (9.4-12.4); Monocytes # 0.7 K/mcL (0.0-1.3); Monocytes % 8.4 %; Neutrophils # 5.5 K/mcL (1.6-8.9); Platelet Count 104 K/mcL (140-400); Red Blood Count 3.92 M/mcL (3.82-4.97); Red Cell Distribution Width 15.4 % (11.5-14.5); Segmented Neutrophils % 69.4 %
[2021-10-05 05:09] LABS: BUN/Creatinine Ratio 21 (6-26); Blood Urea Nitrogen 13 mg/dL (8-23); Calcium 8.5 mg/dL (8.6-10.3); Carbon Dioxide 25 mEq/L (23-29); Chloride 98 mEq/L (98-107); Glucose 219 mg/dL (70-105); Magnesium 1.6 mg/dL (1.6-2.6); Osmolality,Calculated 283 (280-300); Phosphorous 3.1 mg/dL (2.7-4.5); Potassium 3.5 mEq/L (3.5-5.1); Sodium 133 mEq/L (136-145); eGFR For African Americans > 60 (> 60); eGFR For Non-African Americans > 60 (> 60)
[2021-10-05] MEDS: *HR* Heparin 5,000 UNIT/ML VIAL SQ SCH (05:35)
[2021-10-05] MEDS: *HR* HYDROcodone/Acet 5/325 mg TABLET PO PRN (05:39)
[2021-10-05] MEDS: 0.9 % Sodium Chloride 1,000 ML IVC SCH (05:40)
[2021-10-05] MEDS ORDERED: ALPRAZolam 0.5 MG TABLET PO PRN (08:22)
[2021-10-05] MEDS ORDERED: Melatonin 3 MG TABLET PO PRN (08:22)
[2021-10-05] MEDS: Insulin LISPRO 300 UNITS/3 ML VIAL SUBQ SCH ×3 (09:13→16:38)
[2021-10-05] MEDS: Cyanocobalamin (B-12) 1,000 MCG TABLET PO SCH ×2 (09:14→20:37)
[2021-10-05] MEDS: cefTRIAXone 1,000 MG in 0.9 % Sodium Chloride Mini Bag 100 ML IVP SCH (09:14)
[2021-10-05] MEDS: Furosemide 40 MG TABLET PO SCH ×2 (09:15→16:46)
[2021-10-05] MEDS: Gabapentin 300 MG CAPSULE PO SCH ×4 (09:15→20:38)
[2021-10-05] MEDS: rOPINIRole 1 MG TABLET PO SCH ×2 (09:15→20:38)
[2021-10-05] MEDS: Zinc Sulfate 220 MG CAPSULE PO SCH (09:15)
[2021-10-05] MEDS: Apixaban 5 MG TABLET PO SCH ×2 (09:15→20:37)
[2021-10-05] MEDS: Ascorbic Acid 500 MG TABLET PO SCH (09:15)
[2021-10-05] MEDS: Cholecalciferol (D-3) 1,000 UNIT (25MCG) TABLET PO SCH (09:15)
[2021-10-06] MEDS: Acetaminophen 325 MG TABLET PO PRN ×3 (00:41→15:12)
[2021-10-06 01:04] LABS: Basophils % 0.6 %; Eosinophils # 0.1 K/mcL (0.0-0.6); Eosinophils % 1.6 %; Hematocrit 32.6 % (35.3-44.9); Hemoglobin 10.1 g/dL (11.5-15.4); Immature Granulocytes % 0.6 % (0-4); Lymphocytes # 1.5 K/mcL (0.6-4.6); Lymphocytes % 23.1 %; Mean Corpuscular Hemoglobin 25.4 pg (28.0-33.3); Mean Corpuscular Volume 81.9 fL (83.0-100.0); Mean Platelet Volume 12.2 fL (9.4-12.4); Monocytes # 0.6 K/mcL (0.0-1.3); Monocytes % 9.2 %; Neutrophils # 4.1 K/mcL (1.6-8.9); Platelet Count 106 K/mcL (140-400); Red Blood Count 3.98 M/mcL (3.82-4.97); Red Cell Distribution Width 15.2 % (11.5-14.5); Segmented Neutrophils % 64.9 %; White Blood Count 6.3 K/mcL (4.3-11.1)
[2021-10-06 01:18] LABS: BUN/Creatinine Ratio 15 (6-26); Blood Urea Nitrogen 11 mg/dL (8-23); Calcium 8.9 mg/dL (8.6-10.3); Carbon Dioxide 26 mEq/L (23-29); Chloride 97 mEq/L (98-107); Glucose 260 mg/dL (70-105); Osmolality,Calculated 284 (280-300); Potassium 3.4 mEq/L (3.5-5.1); Sodium 133 mEq/L (136-145); eGFR For African Americans > 60 (> 60); eGFR For Non-African Americans > 60 (> 60)
[2021-10-06] MEDS: Cholecalciferol (D-3) 1,000 UNIT (25MCG) TABLET PO SCH (08:02)
[2021-10-06] MEDS: Zinc Sulfate 220 MG CAPSULE PO SCH (08:02)
[2021-10-06] MEDS: Gabapentin 300 MG CAPSULE PO SCH ×4 (08:03→21:02)
[2021-10-06] MEDS: cefTRIAXone 1,000 MG in 0.9 % Sodium Chloride Mini Bag 100 ML IVP SCH (08:03)
[2021-10-06] MEDS: Furosemide 40 MG TABLET PO SCH ×2 (08:03→16:57)
[2021-10-06] MEDS: rOPINIRole 1 MG TABLET PO SCH ×2 (08:03→20:59)
[2021-10-06] MEDS: Apixaban 5 MG TABLET PO SCH ×2 (08:03→21:00)
[2021-10-06] MEDS: Ascorbic Acid 500 MG TABLET PO SCH (08:05)
[2021-10-06] MEDS: Insulin LISPRO 300 UNITS/3 ML VIAL SUBQ SCH ×3 (08:09→16:58)
[2021-10-06] MEDS: Cyanocobalamin (B-12) 1,000 MCG TABLET PO SCH ×2 (08:15→21:01)
[2021-10-06] MEDS: Sucralfate 1 GM TABLET PO SCH ×3 (12:07→21:00)
[2021-10-06] MEDS ORDERED: Insulin DETEMIR 100 UNIT/ML X5UNITS SUBQ SCH (21:00)
[2021-10-06] MEDS: *HR* HYDROcodone/Acet 5/325 mg TABLET PO PRN (21:00)
[2021-10-07 07:59] VITALS: BP 187/96; PULSE 84; TEMP 98.5; O2SAT 92
[2021-10-07] MEDS ORDERED: *HR* Metformin 500 MG TABLET PO SCH (08:00)
[2021-10-07] MEDS: cefTRIAXone 1,000 MG in 0.9 % Sodium Chloride Mini Bag 100 ML IVP SCH (08:15)
[2021-10-07] MEDS: rOPINIRole 1 MG TABLET PO SCH (08:17)
[2021-10-07] MEDS: Cyanocobalamin (B-12) 1,000 MCG TABLET PO SCH (08:18)
[2021-10-07] MEDS: Sucralfate 1 GM TABLET PO SCH (08:18)
[2021-10-07] MEDS: Cholecalciferol (D-3) 1,000 UNIT (25MCG) TABLET PO SCH (08:18)
[2021-10-07] MEDS: Ascorbic Acid 500 MG TABLET PO SCH (08:18)
[2021-10-07] MEDS: Zinc Sulfate 220 MG CAPSULE PO SCH (08:18)
[2021-10-07] MEDS: Furosemide 40 MG TABLET PO SCH (08:18)
[2021-10-07] MEDS: Gabapentin 300 MG CAPSULE PO SCH (08:18)
[2021-10-07] MEDS: Apixaban 5 MG TABLET PO SCH (08:19)
[2021-10-07] MEDS: Insulin LISPRO 300 UNITS/3 ML VIAL SUBQ SCH (08:19)
== END 2021-10-07 10:22 | disposition home or self-care (01) | DRG 871 ==
LOC: 3ANU 12:07 → EMEROOARM 12:07 → 3ANU 16:22 → SUATTDRO 10-05 15:15
PROVIDERS: ADMIT General Practice; ATTEND Internal Medicine

== ENCOUNTER 2022-04-27 19:50 | Inpatient (IN) ==
[2022-04-27] MEDS ORDERED: Ringers Solution, Lactated 1,000 ML IVC ONE ×2 (20:10→23:14)
[2022-04-27] MEDS ORDERED: Acetaminophen 325 MG TABLET PO ONE (20:15)
[2022-04-27 20:20] LABS: Basophils % 0.3 %; Eosinophils % 0.3 %; Mean Platelet Volume 11.5 fL (9.4-12.4); Red Cell Distribution Width 15.2 % (11.5-14.5)
[2022-04-27 20:21] LABS: Hematocrit 33.8 % (35.3-44.9); Hemoglobin 10.7 g/dL (11.5-15.4); Immature Granulocytes % 0.4 % (0-4); Immature Platelets 8.5 % (1.1-6.1); Lymphocytes # 1.2 K/mcL (0.6-4.6); Lymphocytes % 17.5 %; Mean Corpuscular HGB Conc 31.7 g/dL (31.6-35.5); Mean Corpuscular Hemoglobin 25.4 pg (28.0-33.3); Mean Corpuscular Volume 80.1 fL (83.0-100.0); Monocytes # 0.8 K/mcL (0.0-1.3); Monocytes % 11.5 %; Neutrophils # 4.9 K/mcL (1.6-8.9); Platelet Count 120 K/mcL (140-400); Red Blood Count 4.22 M/mcL (3.82-4.97)
[2022-04-27 20:35] LABS: INR 1.1; Prothrombin Time 12.6 Seconds (9.4-12.1)
[2022-04-27] MEDS ORDERED: Piperacillin/Tazobactam 3.375 GM in 0.9 % Sodium Chloride Mini Bag 100 ML IVPB ONE (20:36)
[2022-04-27] MEDS ORDERED: Iopamidol - 370 500 ML MLS IVP ONE (20:36)
[2022-04-27 20:38] LABS: Activated Partial Thrombo Time 35.2 Seconds (26.0-36.0)
[2022-04-27 20:40] LABS: Alanine Aminotransferase 13 Units/L (7-52); Albumin 4.2 g/dL (3.5-5.7); Albumin/Globulin Ratio 1.3 (1.1-2.2); Alkaline Phosphatase 57 Units/L (34-104); Aspartate Amino Transferase 10 Units/L (13-39); BUN/Creatinine Ratio 25 (6-26); Bilirubin,Indirect 0.4 mg/dL (0.0-1.0); Bilirubin,Total 0.4 mg/dL (0.3-1.0); Blood Urea Nitrogen 26 mg/dL (8-23); Calcium 10.2 mg/dL (8.6-10.3); Carbon Dioxide 26 mEq/L (23-29); Chloride 98 mEq/L (98-107); Globulin 3.2 g/dL (2.4-3.5); Glucose 192 mg/dL (70-105); Magnesium 1.9 mg/dL (1.6-2.6); Osmolality,Calculated 286 (280-300); Phosphorous 1.9 mg/dL (2.7-4.5); Potassium 4.4 mEq/L (3.5-5.1); Sodium 133 mEq/L (136-145); Total Protein 7.4 g/dL (6.4-8.9)
[2022-04-27 20:49] LABS: Troponin I < 0.03 ng/mL (< 0.04)
[2022-04-27 21:30] LABS: VBG HCO3 25 mEq/L (21-27); VBG PCO2 39 mmHg (41-51); VBG PH 7.42 pH Units (7.32-7.42); VBG PO2 59 mmHg (25-50)
[2022-04-27 21:39] LABS: Influenza A PCR Negative (Negative); Influenza B PCR Negative (Negative); Resp. Syncytial Virus PCR Negative (Negative); SARS-CoV-2 by PCR (In House) Negative (Negative)
[2022-04-27] MEDS ORDERED: rOPINIRole 1 MG TABLET PO ONE (23:00)
[2022-04-27 23:38] LABS: Bilirubin,Urine Negative (Negative); Blood,Urine Trace (Negative); Clarity,Urine Clear (Clear); Color,Urine Light-Yellow (Yellow); Glucose,Urine (UA) 150 mg/dL (Normal); Ketones,Urine Negative (Negative); Leukocyte Esterase,Urine Moderate (Negative); Mucus,Urine Few per lpf (None-Few); Nitrite,Urine Negative (Negative); Protein,Urine 50 mg/dL (Neg-Trace); RBC,Urine 0-3 per hpf (0-3); Specific Gravity,Urine 1.028 (1.010-1.025); Squamous Epithelial Cell,Urine Few per hpf (None-Few); Urobilinogen,Urine Normal (Normal)
[2022-04-27] MEDS ORDERED: Melatonin 3 MG TABLET PO PRN (23:51)
[2022-04-27] MEDS ORDERED: Ondansetron ODT 4 MG TAB.RAPDIS SL PRN (23:51)
[2022-04-27] MEDS ORDERED: Naloxone 0.4 MG/ML INJ IVP PRN (23:51)
[2022-04-28] MEDS ORDERED: D5% in Water 1,000 ML IVC PRN (00:32)
[2022-04-28] MEDS ORDERED: Dextrose Gel 15 GM/37.5 ML TUBE PO PRN ×2 (00:32)
[2022-04-28] MEDS ORDERED: *HR* Dextrose 50 % in Water (Syg) 50 ML SYRINGE IVP PRN (00:32)
[2022-04-28] MEDS ORDERED: Ringers Solution, Lactated 500 ML IVC ONE (01:15)
[2022-04-28] MEDS ORDERED: Piperacillin/Tazobactam 3.375 GM in 0.9 % Sodium Chloride Mini Bag 100 ML IVPB SCH ×2 (04:00→07:00)
[2022-04-28 06:37] LABS: Hematocrit 36.5 % (35.3-44.9); Mean Corpuscular HGB Conc 30.1 g/dL (31.6-35.5); Mean Corpuscular Hemoglobin 25.5 pg (28.0-33.3); Mean Corpuscular Volume 84.5 fL (83.0-100.0); Mean Platelet Volume 11.4 fL (9.4-12.4); Platelet Count 100 K/mcL (140-400); Red Blood Count 4.32 M/mcL (3.82-4.97); Red Cell Distribution Width 15.5 % (11.5-14.5); White Blood Count 6.8 K/mcL (4.3-11.1)
[2022-04-28 07:01] LABS: Albumin/Globulin Ratio 1.3 (1.1-2.2); Bilirubin,Total 0.6 mg/dL (0.3-1.0); Calcium 9.8 mg/dL (8.6-10.3); Globulin 3.1 g/dL (2.4-3.5); Magnesium 1.8 mg/dL (1.6-2.6); Phosphorous 3.5 mg/dL (2.7-4.5); Potassium 4.4 mEq/L (3.5-5.1); Total Protein 7.1 g/dL (6.4-8.9)
[2022-04-28] MEDS: Piperacillin/Tazobactam 3.375 GM in 0.9 % Sodium Chloride Mini Bag 100 ML IVPB SCH ×2 (08:06→15:55)
[2022-04-28] MEDS ORDERED: ALPRAZolam 0.5 MG TABLET PO PRN (10:28)
[2022-04-28] MEDS: Insulin LISPRO 300 UNITS/3 ML VIAL SUBQ SCH ×4 (11:11→21:21)
[2022-04-28] MEDS: rOPINIRole 1 MG TABLET PO SCH (21:20)
[2022-04-28] MEDS: Apixaban 5 MG TABLET PO SCH (21:21)
[2022-04-28] MEDS: Gabapentin 300 MG CAPSULE PO SCH (21:49)
[2022-04-28] MEDS: *HR* OxyCODONE Immed Rel 5 MG TABLET PO PRN (21:49)
[2022-04-29] MEDS: Piperacillin/Tazobactam 3.375 GM in 0.9 % Sodium Chloride Mini Bag 100 ML IVPB SCH ×3 (00:04→16:21)
[2022-04-29] MEDS ORDERED: 0.9 % Sodium Chloride 1,000 ML IVC SCH (08:00)
[2022-04-29] MEDS ORDERED: Furosemide 40 MG TABLET PO SCH (09:00)
[2022-04-29] MEDS: Insulin LISPRO 300 UNITS/3 ML VIAL SUBQ SCH ×4 (09:31→21:03)
[2022-04-29] MEDS: Cholecalciferol (D-3) 1,000 UNIT (25MCG) TABLET PO SCH (09:34)
[2022-04-29] MEDS: Gabapentin 300 MG CAPSULE PO SCH ×3 (09:34→21:01)
[2022-04-29] MEDS: Sucralfate 1 GM TABLET PO SCH ×4 (09:34→21:02)
[2022-04-29] MEDS: Cyanocobalamin (B-12) 1,000 MCG TABLET PO SCH ×2 (09:34→21:01)
[2022-04-29] MEDS: Apixaban 5 MG TABLET PO SCH ×2 (09:35→21:01)
[2022-04-29] MEDS: rOPINIRole 1 MG TABLET PO SCH ×2 (09:35→21:00)
[2022-04-29] MEDS ORDERED: Ipratropium/Albuterol Neb 3 ML IH PRN (19:21)
[2022-04-29] MEDS: Nystatin POWDER 30 GM BOTTLE TP SCH (21:02)
[2022-04-30] MEDS: Piperacillin/Tazobactam 3.375 GM in 0.9 % Sodium Chloride Mini Bag 100 ML IVPB SCH ×4 (00:07→23:29)
[2022-04-30 03:04] LABS: % Iron Saturation 9 % (15-50); BUN/Creatinine Ratio 20 (6-26); Blood Urea Nitrogen 14 mg/dL (8-23); Calcium 9.2 mg/dL (8.6-10.3); Carbon Dioxide 23 mEq/L (23-29); Chloride 103 mEq/L (98-107); Glucose 155 mg/dL (70-105); Iron 26 mcg/dL (50-170); Osmolality,Calculated 282 (280-300); Potassium 4.5 mEq/L (3.5-5.1); Sodium 134 mEq/L (136-145); Transferrin 212 mg/dL (203-362)
[2022-04-30 03:07] LABS: Basophils % 0.5 %; Eosinophils # 0.2 K/mcL (0.0-0.6); Hematocrit 29.8 % (35.3-44.9); Immature Granulocytes % 0.7 % (0-4); Lymphocytes # 1.3 K/mcL (0.6-4.6); Lymphocytes % 30.9 %; Mean Corpuscular HGB Conc 31.2 g/dL (31.6-35.5); Mean Corpuscular Hemoglobin 25.1 pg (28.0-33.3); Mean Corpuscular Volume 80.5 fL (83.0-100.0); Mean Platelet Volume 12.9 fL (9.4-12.4); Monocytes # 0.7 K/mcL (0.0-1.3); Monocytes % 16.8 %; Neutrophils # 1.9 K/mcL (1.6-8.9); Red Cell Distribution Width 15.2 % (11.5-14.5); Segmented Neutrophils % 47.1 %; White Blood Count 4.1 K/mcL (4.3-11.1)
[2022-04-30 03:09] LABS: Hemoglobin 9.3 g/dL (11.5-15.4); Platelet Count 83 K/mcL (140-400)
[2022-04-30 05:41] LABS: Estimated Average Glucose 166 mg/dl; Hemoglobin A1C 7.4 %
[2022-04-30] MEDS: Ascorbic Acid 500 MG TABLET PO SCH (08:15)
[2022-04-30] MEDS: rOPINIRole 1 MG TABLET PO SCH ×2 (08:15→21:41)
[2022-04-30] MEDS: Lactobacillus 1 EACH CAP.SPRINK PO SCH (08:15)
[2022-04-30] MEDS: Cyanocobalamin (B-12) 1,000 MCG TABLET PO SCH ×2 (08:15→21:41)
[2022-04-30] MEDS: Sucralfate 1 GM TABLET PO SCH ×4 (08:16→21:40)
[2022-04-30] MEDS: Apixaban 5 MG TABLET PO SCH ×2 (08:16→21:40)
[2022-04-30] MEDS: Cholecalciferol (D-3) 1,000 UNIT (25MCG) TABLET PO SCH (08:16)
[2022-04-30] MEDS: Gabapentin 300 MG CAPSULE PO SCH ×3 (08:16→21:40)
[2022-04-30] MEDS: Insulin LISPRO 300 UNITS/3 ML VIAL SUBQ SCH ×4 (08:20→21:43)
[2022-04-30] MEDS: Nystatin POWDER 30 GM BOTTLE TP SCH ×2 (11:27→21:42)
[2022-04-30] MEDS: Furosemide 40 MG TABLET PO SCH ×2 (11:27→16:08)
[2022-04-30 14:25] LABS: Adenovirus Not Detected (Not Detect); Bordetella Pertussis Not Detected (Not Detect); Chlamydophila pneumoniae Not Detected (Not Detect); Coronavirus 229E Not Detected (Not Detect); Coronavirus HKU1 Not Detected (Not Detect); Coronavirus NL63 Not Detected (Not Detect); Coronavirus OC43 Not Detected (Not Detect); Human Metapneumovirus Not Detected (Not Detect); Human Rhinovirus/Enterovirus Not Detected (Not Detect); Influenza A Subtype 2009 H1 Not Detected (Not Detect); Influenza B Not Detected (Not Detect); Mycoplasma pneumoniae Not Detected (Not Detect); Parainfluenza Virus 1 Not Detected (Not Detect); Parainfluenza Virus 2 Not Detected (Not Detect); Parainfluenza Virus 3 Not Detected (Not Detect); Parainfluenza Virus 4 Not Detected (Not Detect); Respiratory Syncytial Virus Not Detected (Not Detect); SARS-CoV-2 Not Detected (Not Detect)
[2022-04-30] MEDS: *HR* OxyCODONE Immed Rel 5 MG TABLET PO PRN (16:32)
[2022-05-01 02:54] LABS: Basophils % 0.6 %; Eosinophils # 0.2 K/mcL (0.0-0.6); Eosinophils % 3.9 %; Hematocrit 30.4 % (35.3-44.9); Hemoglobin 9.7 g/dL (11.5-15.4); Immature Granulocytes % 0.2 % (0-4); Lymphocytes # 1.4 K/mcL (0.6-4.6); Lymphocytes % 29.3 %; Mean Corpuscular HGB Conc 31.9 g/dL (31.6-35.5); Mean Corpuscular Hemoglobin 25.1 pg (28.0-33.3); Mean Corpuscular Volume 78.8 fL (83.0-100.0); Monocytes # 0.6 K/mcL (0.0-1.3); Monocytes % 13.6 %; Neutrophils # 2.4 K/mcL (1.6-8.9); Platelet Count 129 K/mcL (140-400); Red Blood Count 3.86 M/mcL (3.82-4.97); Segmented Neutrophils % 52.4 %; White Blood Count 4.6 K/mcL (4.3-11.1)
[2022-05-01 03:18] LABS: Calcium 9.3 mg/dL (8.6-10.3); Potassium 3.2 mEq/L (3.5-5.1)
[2022-05-01 07:49] VITALS: TEMP 98.4
[2022-05-01] MEDS: Apixaban 5 MG TABLET PO SCH (08:30)
[2022-05-01] MEDS: Furosemide 40 MG TABLET PO SCH (08:30)
[2022-05-01] MEDS: Gabapentin 300 MG CAPSULE PO SCH (08:30)
[2022-05-01] MEDS: Cyanocobalamin (B-12) 1,000 MCG TABLET PO SCH (08:30)
[2022-05-01] MEDS: Sucralfate 1 GM TABLET PO SCH ×2 (08:30→12:47)
[2022-05-01] MEDS: Cholecalciferol (D-3) 1,000 UNIT (25MCG) TABLET PO SCH (08:30)
[2022-05-01] MEDS: Ascorbic Acid 500 MG TABLET PO SCH (08:31)
[2022-05-01] MEDS: rOPINIRole 1 MG TABLET PO SCH (08:31)
[2022-05-01] MEDS: Lactobacillus 1 EACH CAP.SPRINK PO SCH (08:31)
[2022-05-01] MEDS: Nystatin POWDER 30 GM BOTTLE TP SCH (08:32)
[2022-05-01] MEDS: Piperacillin/Tazobactam 3.375 GM in 0.9 % Sodium Chloride Mini Bag 100 ML IVPB SCH (08:32)
[2022-05-01] MEDS: Insulin LISPRO 300 UNITS/3 ML VIAL SUBQ SCH ×2 (08:34→12:44)
[2022-05-01 11:13] VITALS: BP 136/59; PULSE 86; O2SAT 96
== END 2022-05-01 13:21 | disposition home health service (06) | DRG 872 ==
LOC: EMEROOARM 19:50 → 2NENU 04-28 06:09 → SUATTDRO 04-28 06:09 → 2NENU 04-28 07:45
PROVIDERS: ADMIT Internal Medicine; ATTEND Pharmacist